=== PATIENT | female | born 1970 | race Caucasian/White ===

== ENCOUNTER → 2017-09-12 14:00 | Outpatient (CLI) | payer OTHER, SELFPAY ==
--- NOTE | 2017-09-12 14:07 | HPBI_ITS ---
MAMMOGRAPHY - BILATERAL SCREENING REASON FOR EXAM: Female, 47 years old. Routine annual screening examination. PERTINENT HISTORY: Remote left excisional breast biopsy. TECHNIQUE: Digital bilateral breast sheila (3D mammographic acquisition) in the CC and MLO projections. 2-D mediolateral oblique (MLO) and craniocaudad (CC) views of both breasts were obtained. CAD: Full Field Digital Mammography with Computer Added Detection was performed. COMPARISON: Comparison is made with prior study dated November 11, 2014 and April 30, 2013. FINDINGS: Breast Composition: The breasts are heterogeneously dense, which may obscure small masses. There are no dominant masses or suspicious calcifications. Stable bilateral benign appearing axillary lymph nodes. No other significant abnormalities are identified. There has been no significant change since the prior study. HPBI/SCREENING MAMM (CAD), BILAT IMPRESSION: Stable bilateral screening mammogram. Yearly follow-up mammogram recommended. (A) ASSESSMENT CATEGORY: BIRADS Category 2: Benign. A letter regarding these results will be sent to the patient by the facility within 30 days. Approximately 10% of breast cancers are not detected by mammography. A normal mammogram should not delay biopsy of a clinically suspicious abnormality. [id number] Electronically Signed: Vitaliy Perera MD at 15:59 EST Tel [phone], Service support ,
== END ==
PROVIDERS: Family Provider Family Medicine; PCP Family Medicine; Visit Provider Family Medicine
DX: Z12.31 Encounter for screening mammogram for malignant neoplasm of breast (principal)
CPT/HCPCS: 77063; 77067

== ENCOUNTER 2017-11-19 13:04 | Emergency (ER) | payer OTHER, SELFPAY ==
[2017-11-19 13:05] VITALS: BP 118/82; PULSE 102; RESP 16; TEMP 37.3; O2SAT 98; BMI 34.2
[2017-11-19 13:16] VITALS: TEMP 37.7
[2017-11-19 13:43] LABS: Absolute Lymphocyte Count 0.98 X10^3/ul (0.83-4.51); Absolute Neutrophil Count 9.4 X10^3/uL (2.0-7.7); Basophil# 0.01 X10^3/uL; Basophil% 0.1 % (0-1); Eosinophil# 0.07 X10^3/uL; Eosinophils% 0.6 % (0-5); Hemoglobin 13.7 g/dl (12.0-15.0); Lymphocyte # 0.98 X10^3/ul (4.0); Lymphocyte % 8.6 % (19-41); Mean Corp Hgb Conc 33.4 g/gl (32-36); Mean Corpuscular Hgb 28.5 pg (27.0-32.0); Mean Corpuscular Volume 85.2 fL (81-99); Mean Platelet Vol. 10.2 fl (6.2-12.0); Monocyte# 0.94 X10^3/uL; Monocyte% 8.2 % (0-10); Neutrophil # 9.43 X10^3/uL (2.7-7.7); Neutrophil % 82.3 % (47-70); Platelet Count 216 K/mm3 (150-450); RBC Distribution Width CV 12.8 % (11.6-14.6); RBC Distribution Width SD 39.6 fl (35.1-43.9); Red Blood Count 4.81 M/mm3 (4.2-5.4); White Blood Count 11.5 K/mm3 (4.4-11.0)
[2017-11-19 13:44] LABS: POSITIVE COUNT NO; POSITIVE DIFFERENTIAL NO; POSITIVE MORPHOLOGY NO
[2017-11-19 13:48] LABS: Erythrocyte Sedimentation Rate 22 mm/hr (0-20)
[2017-11-19 13:56] LABS: Anion Gap 8 (5-15); BUN 16 mg/dL (7-18); BUN/Creat Ratio 23.4 RATIO (10-20); Calcium,Total 8.8 mg/dL (8.5-10.1); Chloride 105 mmol/L (98-107); Creatinine, Serum 0.68 mg/dL (0.55-1.02); EST Glomerular Filtration Rate 98 mL/min (>60); Est Glom Filt Rate - Afr Amer 118 mL/min (>60); Estimated Creatinine Clearance 80.89 ml/min; Glucose 106 mg/dL (74-106); Potassium 3.8 mmol/L (3.5-5.1); Sodium Level 139 mmol/L (136-145)
[2017-11-19] MEDS: Ketorolac 30 MG/ML Syringe IV (14:00)
--- NOTE | 2017-11-19 14:10 | RAD_ITS ---
STUDY: X-RAY - LEFT KNEE REASON FOR EXAM: Female, 47 years old. Swelling and knee pain. No known injury. TECHNIQUE: AP and lateral view(s) of the knee. COMPARISON: None. FINDINGS: Normal visualized distal femur. Normal visualized proximal tibia and fibula. Normal proximal tibiofibular articulation. Normal medial femorotibial compartment. Normal lateral femorotibial compartment. Normal patellofemoral articulation. Small joint effusion. RAD/Knee 1 or 2 Views IMPRESSION: Small joint effusion. Electronically Signed: Vitaliy Perera MD at 14:26 EDT Tel [phone], Service support ,
--- NOTE | 2017-11-19 14:16 | ED.VISSUMM ---
- ER Visit Summary Date of Service: 11/19/17 Chief Complaint: To ER from urgent care because of arthralgias, red swollen right knee and fever History of Present Illness: The patient is a 47 F who reports onset of arthralgias this past Sunday. She has history of hypertension and is on hydrochlorothiazide. She denies history of gout or pseudogout. Fever documented 200.0?F. She denied chills or night sweats. She denies history of autoimmune disorder in the family or herself. She complains of severe pain left shoulder especially with movement and complains of swelling and warmth left knee. Otherwise review of systems unremarkable, please read written note. Physical Examination: Vital signs are unremarkable. She is afebrile. Head is atraumatic normocephalic. Pupils are equal round reactive. Extraocular muscles are intact. TMs are pearly white with landmarks noted. Nares patent with no drainage. Posterior pharynx without erythema or exudate. Uvula is midline. There is no dysphonia or dysphasia. Trachea is midline. There is no stridor with auscultation of the neck. Heart is regular without murmur, gallop or rub. S1 and S2 are normal. Lungs are clear to auscultation with good movement of air bilaterally. There is pain with passive range of motion of left shoulder. There is no erythema, warmth, fluctuance or effusion appreciated. There is no axillary lymphadenopathy. There is no pain palpation with movement of the elbow, wrist or digits. The left knee is swollen with an effusion. She is able to extend 280? and flex to approximately 100?. She complains of pain with movement. There is no erythema noted. There may be slight warmth in comparison to the right knee. None of her other joints are swollen, boggy and no appreciable effusion. Test Results: White count is 11.5 thousand with 83 segs. Electronic panel is unremarkable. ESR is slightly elevated at 22. View x-ray of the left knee is negative. No crystals were noted. Gram stain was negative for any organisms. Cell count is 30,000 with 90% segs. Emergency Department Course and Treatment: X-ray of the knee was obtained. Blood work was obtained as well. Differential includes crystal induced versus pyogenic versus other cause of arthralgia. This may represent a viral illness or autoimmune. Patient was consented for arthrocentesis of the left knee. She was explained what would be done and reason why it needed to be done. She was given an opportunity ask questions, and she asked none. The left knee was prepped draped sterile manner. Medial approach was undertaken. The area was anesthetized with lidocaine. Approximately 15 cc of a yellow turbid fluid was aspirated. A mixture of 9 cc 1% lidocaine and 1 cc of Kenalog was instilled. Fluid was sent for appropriate analysis (crystals, Gram stain and WBC count with differential). Treatment Plan: Dr. Weems was paged. Dr. Garza was made aware patient's history, physical findings and laboratory results. Plan is for patient to call tomorrow for urgent outpatient follow-up and referral to canal structure operator. Will treat with NSAIDs. Disposition: Discharged home with outpatient follow-up tomorrow Impression: Polyarthralgia unspecified etiology This note was generated with [employer] dictation software. It may contain incorrect words, spelling, and punctuation that were not noted in review of the chart prior to signing ED Disposition - Plan for ED Patient: Disposition: Home or Assisted Living Chief Complaint: Fever Instructions: ED Joint Pain Prescriptions: Naproxen [Naprosyn] 500 mg PO BID #14 tab Referrals: Eliz Weems MD [Primary Care Provider] - 11/20/17 Additional Instructions: Call Dr. Garcia's office tomorrow morning for an appointment to be seen and possible referral to canal structure operator.
[2017-11-19 15:16] LABS: Color, Urine Yellow (Yellow); Glucose, Dipstick Normal (Normal); Ketone-Dipstick 15 mg/dl (Negative); Leukocyte Esterase-Dipstick 25 /ul (Negative); Nitrite-Dipstick Negative (Negative); Occult Blood-Urine Negative /ul (Negative); Protein-Dipstick 30 mg/dl (Negative); Specific Gravity, Urine 1.015 (1.002-1.030); Urine Bilirubin Dipstick Negative (Negative); Urine Clarity Sl. Cloudy (Clear); Urine Urobilinogen Normal (Normal)
[2017-11-19 16:15] LABS: Pathologist Comment May follow
[2017-11-19] MEDS: Triamcinolone Acetonide 40 MG/ML Vial IU (16:26)
[2017-11-19 16:47] VITALS: BP 135/83; PULSE 94; RESP 18; O2SAT 100
[2017-11-19 17:26] LABS: RBC /Synovial Fluid 0.004 10^6/uL (0); Synovial Fld Mononuclear WBC % 9.5 %; Synovial Fld Polynuclear WBC % 90.5 %
[2017-11-19 17:50] LABS: CRYSTALS, BODY FLUID Other, see comment; Source / Synovial Fluid LEFT KNEE; Source- Body Fluid SYNOVIAL
[2017-11-19 17:51] LABS: Appearance /Synovial Fluid Hazy (CLEAR); Color / Synovial Fluid Yellow (Pale Yellow); Viscosity / Synovial Fluid Mod. Viscous (HIGH)
[2017-11-19 17:53] LABS: AUTO B FLUID DILUENT BKGD CT WBC <0.1 RBC <0.01 (W<.1,R<.01)
--- NOTE | 2017-11-19 17:59 | ED.VISSUMM ---
- ER Visit Summary Date of Service: 11/19/17 Chief Complaint: [] History of Present Illness: The patient is a 47 F [] Physical Examination: [] Test Results: [] Emergency Department Course and Treatment: [] Treatment Plan: [] Disposition: [] Impression: [] This note was generated with [employer] dictation software. It may contain incorrect words, spelling, and punctuation that were not noted in review of the chart prior to signing ED Disposition - Plan for ED Patient: Disposition: Home or Assisted Living Chief Complaint: Fever Instructions: ED Joint Pain Prescriptions: Hydrocodone Bitart/Apap 5-325 [[place] 5MG-325MG] 1 tab PO Q4H PRN PRN 2 Days #10 tab PRN Reason: Pain Naproxen [Naprosyn] 500 mg PO BID #14 tab Referrals: Eliz Weems MD [Primary Care Provider] - 11/20/17 Additional Instructions: Call Dr. Garcia's office tomorrow morning for an appointment to be seen and possible referral to performance makeup artist.
[2017-11-19 18:05] LABS: Monocyte /Synovial Fluid 6 %; Neutrophil 93 % (0-25)
[2017-11-19 18:08] LABS: Body Fluid QC Type(s) BF1Q,BF2Q
[2017-11-19 18:09] LABS: Other Cell /Synovial Fluid 1 %
[2017-11-19 18:13] VITALS: BP 134/86; PULSE 99; RESP 16; O2SAT 97
[2017-11-20 01:59] LABS: Synovial Fld Mononuclear WBC # 3.029 10^3/ul; Synovial Fld Polynuclear WBC # 28.855 10^3/ul
[2017-11-20 10:16] LABS: Pathologist Review Reviewed
== END 2017-11-19 18:15 | disposition home or self-care (01) ==
PROVIDERS: Emergency Provider Emergency Medicine; Family Provider Family Medicine; PCP Family Medicine
DX: M25.512 Pain in left shoulder (principal); M25.562 Pain in left knee; E66.9 Obesity, unspecified; I10 Essential (primary) hypertension; F32.9 Major depressive disorder, single episode, unspecified; Z79.899 Other long term (current) drug therapy
CPT/HCPCS: 20610; 73560; 80048; 81002; 85025; 85652; 87070; 87075; 87205; 89050; 89051; 89060; 96374; 99282

== ENCOUNTER → 2017-11-22 09:47 | Outpatient (CLI) | payer OTHER, SELFPAY ==
[2017-11-22 12:14] LABS: Absolute Lymphocyte Count 1.24 X10^3/ul (0.83-4.51); Eosinophil# 0.05 X10^3/uL; Eosinophils% 0.5 % (0-5); Lymphocyte # 1.24 X10^3/ul (4.0); Lymphocyte % 12.3 % (19-41); Mean Corp Hgb Conc 32.5 g/gl (32-36); Mean Corpuscular Hgb 28.6 pg (27.0-32.0); Mean Corpuscular Volume 88.1 fL (81-99); Mean Platelet Vol. 11.1 fl (6.2-12.0); Monocyte# 0.77 X10^3/uL; Monocyte% 7.7 % (0-10); Neutrophil # 7.98 X10^3/uL (2.7-7.7); Neutrophil % 79.3 % (47-70); Platelet Count 294 K/mm3 (150-450); RBC Distribution Width CV 13.4 % (11.6-14.6); RBC Distribution Width SD 42.9 fl (35.1-43.9); Red Blood Count 4.54 M/mm3 (4.2-5.4); White Blood Count 10.1 K/mm3 (4.4-11.0)
[2017-11-22 12:19] LABS: POSITIVE COUNT NO; POSITIVE DIFFERENTIAL NO; POSITIVE MORPHOLOGY NO
[2017-11-22 12:40] LABS: Erythrocyte Sedimentation Rate 54 mm/hr (0-20)
[2017-11-22 12:49] LABS: Rheumatoid Factor < 10.0 IU/mL (<15); Uric Acid 3.2 mg/dL (2.6-6.0)
[2017-11-22 15:35] LABS: Lyme Ab Screen Interpretation REF LAB
[2017-11-24 08:39] LABS: ANTINUCLEAR ANTIBODIES DIRECT Negative (Negative)
[2017-11-27 12:17] LABS: Lyme Scn Total Ab w/Rflx <0.91 ISR (0.00-0.90)
== END ==
PROVIDERS: Family Provider Family Medicine; PCP Family Medicine; Visit Provider Family Medicine
DX: M19.90 Unspecified osteoarthritis, unspecified site (principal)
CPT/HCPCS: 36415; 84550; 85025; 85652; 86038; 86140; 86431; 86618

== ENCOUNTER → 2017-11-24 11:11 | Outpatient (CLI) | payer OTHER, SELFPAY ==
[2017-11-24 11:46] LABS: Hematocrit 40.2 % (37-47); Hemoglobin 13.2 g/dl (12.0-15.0); Mean Corp Hgb Conc 32.8 g/gl (32-36); Mean Corpuscular Hgb 28.6 pg (27.0-32.0); Mean Corpuscular Volume 87.2 fL (81-99); Mean Platelet Vol. 10.1 fl (6.2-12.0); Platelet Count 294 K/mm3 (150-450); RBC Distribution Width CV 12.9 % (11.6-14.6); RBC Distribution Width SD 41.3 fl (35.1-43.9); Red Blood Count 4.61 M/mm3 (4.2-5.4); White Blood Count 9.6 K/mm3 (4.4-11.0)
[2017-11-24 11:47] LABS: Absolute Lymphocyte Count 1.64 X10^3/ul (0.83-4.51); Absolute Neutrophil Count 6.8 X10^3/uL (2.0-7.7); Basophil# 0.02 X10^3/uL; Basophil% 0.2 % (0-1); Eosinophil# 0.33 X10^3/uL; Eosinophils% 3.4 % (0-5); Lymphocyte # 1.64 X10^3/ul (4.0); Lymphocyte % 17.1 % (19-41); Monocyte# 0.79 X10^3/uL; Monocyte% 8.2 % (0-10); Neutrophil % 70.8 % (47-70)
[2017-11-24 11:48] LABS: POSITIVE COUNT NO; POSITIVE DIFFERENTIAL NO; POSITIVE MORPHOLOGY NO
[2017-11-24 11:53] LABS: Erythrocyte Sedimentation Rate 41 mm/hr (0-20)
== END ==
PROVIDERS: Family Provider Family Medicine; PCP Family Medicine; Visit Provider Family Medicine
DX: M06.4 Inflammatory polyarthropathy (principal)
CPT/HCPCS: 36415; 85025; 85652; 86140

== ENCOUNTER → 2017-11-26 15:56 | Outpatient (CLI) | payer OTHER, SELFPAY ==
[2017-11-26 17:38] LABS: Erythrocyte Sedimentation Rate 48 mm/hr (0-20)
== END ==
PROVIDERS: Family Medicine; Family Provider Family Medicine; PCP Family Medicine; Visit Provider Family Medicine
DX: M06.4 Inflammatory polyarthropathy (principal)
CPT/HCPCS: 36415; 85652; 86140

== ENCOUNTER → 2020-06-02 | Outpatient (CLI) | payer OTHER, SELFPAY ==
[2020-06-02 16:20] LABS: Anion Gap 4 (5-15); BUN 18 mg/dL (7-18); BUN/Creat Ratio 25.1 RATIO (10-20); Calcium,Total 9.2 mg/dL (8.5-10.1); Chloride 106 mmol/L (98-107); Creatinine, Serum 0.72 mg/dL (0.55-1.02); EST Glomerular Filtration Rate 91 mL/min (>60); Est Glom Filt Rate - Afr Amer 111 mL/min (>60); Glucose 101 mg/dL (74-106); Potassium 3.9 mmol/L (3.5-5.1); Sodium Level 139 mmol/L (136-145)
== END | disposition home or self-care (01) ==
LOC: MFPLAB 14:20
PROVIDERS: PCP Family Medicine; Referring Provider Family Medicine; Visit Provider Family Medicine
DX: I10 Essential (primary) hypertension (principal)
CPT/HCPCS: 36415; 80048

== ENCOUNTER → 2020-07-01 10:49 | Outpatient (CLI) | payer OTHER, SELFPAY ==
--- NOTE | 2020-07-01 10:51 | BI_ITS ---
MAMMOGRAPHY - BILATERAL SCREENING REASON FOR EXAM: Female, 50 years old. Routine annual screening examination. PERTINENT HISTORY: Non-contributory. Remote left excisional breast biopsy. TECHNIQUE: Digital bilateral breast lorena (3D mammographic acquisition) in the CC and MLO projections. 2-D mediolateral oblique (MLO) and craniocaudad (CC) views of both breasts were obtained. CAD: Full Field Digital Mammography with Computer Added Detection was performed. COMPARISON: Comparison is made with prior study dated 09/12/2017 and 11/11/2014. FINDINGS: Breast Composition: The breasts are heterogeneously dense, which may obscure small masses. There are no dominant masses or suspicious calcifications. Stable small benign appearing bilateral axillary lymph nodes. No other significant abnormalities are identified. There has been no significant change since the prior study. BI/SCREEN MAMM (CAD) W/LORENA BILAT IMPRESSION: Stable bilateral screening mammogram. Yearly follow-up mammogram recommended. (A) ASSESSMENT CATEGORY: BIRADS Category 2: Benign. A letter regarding these results will be sent to the patient by the facility within 30 days. Approximately 10% of breast cancers are not detected by mammography. A normal mammogram should not delay biopsy of a clinically suspicious abnormality. [id number] Electronically Signed: Vitaliy Perera, at 12:26 EST , Service support ,
== END ==
PROVIDERS: PCP Family Medicine; Referring Provider Family Medicine; Visit Provider Family Medicine
DX: Z12.31 Encounter for screening mammogram for malignant neoplasm of breast (principal)
CPT/HCPCS: 77063; 77067

== ENCOUNTER 2021-12-29 15:06 | Observation (INO) | payer OTHER, SELFPAY ==
[2021-12-29] VITALS (12 sets, daily range): BP systolic 136–200; BP diastolic 74–118; PULSE 78–85; RESP 16; TEMP 36.4–37; O2SAT 92–100; BMI 38.7; BMI 38.5
--- NOTE | 2021-12-29 15:32 | EDS_ITS ---
HPI HPI - GI History of Present Illness Chief Complaint: Abd Pain Informant: patient Abdominal Pain/Flank Pain Onset: Days Context: Gradual Onset Timing: Continuous Quality: Aching Location: RLQ and Right Flank Current Severity: Mild Maximum Severity: Mild Worsened by: Nothing Relieved by: Nothing Nausea/Vomiting/Emesis GI Symptom: Negative for Nausea and Vomiting Diarrhea/Melena/Hematochezia GI Symptom: Negative for Diarrhea, Melena and Hematochezia Associated Symptoms Associated Symptoms: Negative for Dysuria, Frequency, Hematuria and Urgency Narrative Narrative: 51-year-old female history of anxiety and hypertension. Prior hysterectomy with her ovaries removed in 2016 due to endometriosis. Patient states that she has had abdominal pain for 6 or 7 days. It was, right lower quadrant and right flank now back to the right lower quadrant. She denies nausea, vomiting or diarrhea. No constipation or dysuria. No fever. No history of kidney stones. Went to her primary care physician's office today. Was seen by JOSE ROBERTO and was sent for CAT scan. CAT scan shows acute appendicitis and she was sent to the ER. Prior similar symptoms: No Recent Illness/Hospitalization: No PFSH PFSH Medical History Anxiety Hearing decreased Home Medications hydrochlorothiazide 12.5 mg PO DAILY 08/26/15 [History Last Taken 12/28/21] aspirin-caffeine [Timothy Back and Body] 2 tab PO DAILY PRN 12/29/21 [History Last Taken 12/28/21] cetirizine [Zyrtec] 10 mg PO DAILY 12/29/21 [History Last Taken 12/28/21] fluoxetine 40 mg PO DAILY 12/29/21 [History Last Taken 12/28/21] Allergy/AdvReac Type Severity Reaction Status Date / Time Penicillins [PCN] Allergy Rash Verified 12/29/21 15:09 Surgical History H/O: hysterectomy Social History Smoking Status: Never smoker ROS ROS ED ROS Narrative Abdominal pain Review of Systems ROS Unobtainable: Denies due to encephalopathy Constitutional Constitutional ED: Denies fever(s) ENT ENT ED: Denies ear pain Cardiovascular Cardiovascular: Denies chest pain Respiratory/Chest Respiratory/Chest: Denies dyspnea Gastrointestinal Gastrointestinal: Reports abdominal pain; Denies constipation, diarrhea, melena, nausea or vomiting Genitourinary Genitourinary ED: Denies dysuria or hematuria Musculoskeletal Musculoskeletal: Denies arthralgias or myalgias Integumentary Denies abscess or rash Neurologic Neurologic: Denies headache(s) or weakness Psychiatric Psychiatric: Denies anxiety or depression Endocrine Endocrinology: Denies polydipsia or polyuria Hematologic/Lymphatic Hematologic/Lymphatic: Denies easy bleeding or easy bruising Allergic/Immunologic Allergic/Immunologic ED: Denies mouth swelling or urticaria EXAM Physical Exam Narrative Exam Narrative: 51-year-old female vital signs stable. Initial blood pressure elevated 200/118 rechecked 197/102. She does not look septic toxic. She is in no distress. H EENT exam unremarkable. Neck nontender lymphadenopathy. Lungs clear to auscultation bilaterally. Heart regular rate and rhythm no murmur. Abdomen soft nondistended normal bowel sounds no peritoneal signs. Tenderness right lower quadrant. No obstruction. No mass. Tender but not peritoneal signs. Moving all 4 extremities. Back nontender. Const Vital Signs: 12/29/21 15:07 12/29/21 15:15 12/29/21 15:21 Temperature 98.2 F 98.2 F Temperature Source Temporal Temporal Pulse Rate 85 85 Respiratory Rate 16 16 Blood Pressure 200/118 H 200/118 H 197/102 H Blood Pressure Mean 145 145 133 Pulse Ox 100 100 Oxygen Delivery Method Room Air Room Air 12/29/21 16:49 12/29/21 17:30 12/29/21 17:41 Temperature 98.4 F Temperature Source Oral Pulse Rate 79 Respiratory Rate 16 Blood Pressure 192/112 H 169/95 H 162/105 H Blood Pressure Mean 138 119 124 Pulse Ox 98 Oxygen Delivery Method Room Air 12/29/21 18:36 Temperature 98.4 F Temperature Source Oral Pulse Rate 79 Respiratory Rate 16 Blood Pressure 162/105 H Blood Pressure Mean 124 Pulse Ox 98 Oxygen Delivery Method Room Air Positive well nourished, well developed and obese; Negative for cachectic, con tractures or unkempt General Appearance ED: well developed and NAD; Negative for unkempt, cachectic, contractures or pallor Nutritional Appearance: obese; Negative for cachectic HEENT Reports moist mucous membranes normocephalic and atraumatic; Negative for trauma or tenderness Eyes PERRL and EOMs intact bilaterally General Eye ED: Negative for pale conjunctiva or scleral icterus Neck no lymphadenopathy, supple and no JVD General: Negative for tenderness Resp normal respiratory effort and clear to auscultation bilaterally Auscultation: Negative for rales, rhonchi or wheezes Cardio regular rate, regular rhythm, S1 normal heart sound, S2 normal heart sound and no murmurs GI non-distended and no masses; Negative for non-tender Auscultation: normoactive bowel sounds Palpation: soft; Negative for tender, guarding or rigid Back/Spine no CVA tenderness General Back: Negative for CVA tenderness Cervical Spine: Negative for cervical spine tenderness Thoracic Spine / Upper Back: Negative for thoracic spinal tenderness Extremity full ROM General Extremety ED: Negative for edema or tenderness General Extremity: Negative for edema Neuro moves all extremities Sensorium / Orientation: alert, oriented to person, oriented to place and oriented to time; Negative for orientation impaired, confused, lethargic or stuporous Motor Exam: strength 5/5 throughout Psych mental status grossly normal and thought process normal Appearance: Negative for unkempt Attitude: No agitated Mood & Affect: Negative for depressed, anxious or tearful Skin no wounds General Skin Exam: Negative for jaundice or pallor Lesions: no lesions and No lesion noted Rashes: no rashes and No rashes noted MDM MDM MDM Narrative Medical decision making narrative: 51-year-old female acute appendicitis on CAT scan. Has a penicillin allergy. Will be started on the Cipro She will. She will be given morphine and for pain and Zofran for nausea. Already paged the general surgeon on-call he is currently in the case in the OR because of the back when he is freed up. Patient is aware that she will need acute appendectomy. Patient doing well. General surgery is already seeing her. They are preparing to take her to the OR for an acute appendectomy. Lab Data Attestation: I reviewed the patient's lab results. Lab results narrative: CBC shows a white count of 6. H&H 13 and 39. Electrolytes unremarkable gap of 6. BUN and creatinine 12.6. Glucose 109. CAT scan ordered as an outpatient done prior to her coming emergency department radiologist read as acute appendicitis with appendicolith. Also incidental finding of cholelithiasis. Labs: Laboratory Results - last 24 hr 12/29/21 12/29/21 15:31 15:31 WBC 6.2 RBC 4.62 Hgb 13.4 Hct 39.8 MCV 86.1 MCH 29.0 MCHC 33.7 RDW Std Deviation 38.7 RDW Coeff of Michelle 12.3 Plt Count 219 MPV 10.7 Immature Gran % (Auto) 0.200 Neut % (Auto) 71.4 H Lymph % (Auto) 18.1 L Mcculloch % (Auto) 7.1 Eos % (Auto) 2.7 Baso % (Auto) 0.5 Absolute Neuts (auto) 4.5 Absolute Lymphs (auto) 1.13 Nucleated RBC % 0 Sodium 140 Potassium 3.6 Chloride 105 Carbon Dioxide 29.0 Anion Gap 6 BUN 12 Creatinine 0.64 Estim Creat Clear Calc 82.25 Est GFR (MDRD) Af Amer 125 Est GFR (MDRD) Non-Af 103 BUN/Creatinine Ratio 18.7 Glucose 109 H Calcium 9.1 Discharge Plan Dx/Rx/DC Orders Clinical Impression: Abdominal pain, Acute appendicitis, History of hypertension, Cholelithiasis Disposition Disposition: [facility] Care [facility]
[2021-12-29] MEDS: morphine 8 MG/ML Syringe 6 MG IV (15:39)
[2021-12-29] MEDS: Ondansetron 4 MG/2 ML Vial IV (15:39)
[2021-12-29 15:40] LABS: Absolute Lymphocyte Count 1.13 X10^3/uL (0.83-4.51); Absolute Neutrophil Count 4.5 X10^3/uL (2.0-7.7); Basophil# 0.03 X10^3/uL; Basophil% 0.5 % (0-1); Eosinophil# 0.17 X10^3/uL; Eosinophils% 2.7 % (0-5); Hematocrit 39.8 % (37-47); Hemoglobin 13.4 g/dL (12.0-15.0); Lymphocyte # 1.13 X10^3/ul (0.83-4.51); Lymphocyte % 18.1 % (19-41); Mean Corp Hgb Conc 33.7 g/dL (32-36); Mean Corpuscular Volume 86.1 fL (81-99); Mean Platelet Vol. 10.7 fl (6.2-12.0); Monocyte# 0.44 X10^3/uL; Monocyte% 7.1 % (0-10); NRBC Flagged by Analyzer 0 % (0-5); Neutrophil # 4.46 X10^3/uL (2.7-7.7); Neutrophil % 71.4 % (47-70); Platelet Count 219 K/mm3 (150-450); RBC Distribution Width CV 12.3 % (11.6-14.6); RBC Distribution Width SD 38.7 fl (35.1-43.9); Red Blood Count 4.62 M/mm3 (4.2-5.4); White Blood Count 6.2 K/mm3 (4.4-11.0)
[2021-12-29] MEDS: Ciprofloxacin 400 MG/200 ML BAG 200 MG IV (15:41)
[2021-12-29 16:10] LABS: Anion Gap 6 (5-15); BUN 12 mg/dL (7-18); BUN/Creat Ratio 18.7 RATIO (10-20); Calcium,Total 9.1 mg/dL (8.5-10.1); Chloride 105 mmol/L (98-107); Creatinine, Serum 0.64 mg/dL (0.55-1.02); EST Glomerular Filtration Rate 103 mL/min (>60); Est Glom Filt Rate - Afr Amer 125 mL/min (>60); Estimated Creatinine Clearance 82.25 ml/min; Glucose 109 mg/dL (74-106); Potassium 3.6 mmol/L (3.5-5.1); Sodium Level 140 mmol/L (136-145)
[2021-12-29] MEDS: metroNIDAZOLE 500 MG/100 ML BAG 100 MG IV (16:55)
--- NOTE | 2021-12-29 18:38 | HP.PCM_ITS ---
HPI - General HPI Narrative Brianda ROSSI, is a 51 F who presents to [facility] ER after she obtained a CT scan of the abdomen pelvis through Dr. Weems for some complaints of right lower quadrant side/abdominal pain. Patient states this pain started 6 days ago following some yard work and she was concerned that she had simply strained a muscle. The pain intensified initially over the weekend which she treated with a heating pad. However it improved to the point that she was able to return to work for the first 2 days this week. During this time she also noticed that the pain migrated from her abdominal area to her back. She notes yesterday the pain returned to her abdomen and intensified. It was at this point that she was instructed by her boss to seek further evaluation and the CT scan was ordered. Patient states that she currently has very minimal abdominal pain and was surprised to learn that there was an issue with her appendix. She denies any associated nausea or vomiting and, in fact, reports that she had a quesadilla at approximately noon time so she would become lightheaded from lack of intake. Patient's ER work-up is notable for a normal white blood cell count but with a slight predominance of neutrophils on her CBC with differential. She states that she is overall healthy, but does carry a diagnosis of hypertension. She denies any prior colon cancer screening. Her blood pressure in the ER is 197/102 and then 192/112 following the administration of pain medication. Prior surgical history includes diagnostic laparoscopy and hysterectomy. [facility] Medical History Anxiety Hearing decreased Home Medications hydrochlorothiazide 12.5 mg PO DAILY 08/26/15 [History Last Taken 12/28/21] aspirin-caffeine [Timothy Back and Body] 2 tab PO DAILY PRN 12/29/21 [History Last Taken 12/28/21] cetirizine [Zyrtec] 10 mg PO DAILY 12/29/21 [History Last Taken 12/28/21] fluoxetine 40 mg PO DAILY 12/29/21 [History Last Taken 12/28/21] Allergy/AdvReac Type Severity Reaction Status Date / Time Penicillins [PCN] Allergy Rash Verified 12/29/21 15:09 Surgical History H/O: hysterectomy Social History Smoking Status: Never smoker Vital Signs Vital Signs Vital Signs: 12/29/21 15:07 12/29/21 15:15 12/29/21 15:21 Temperature 98.2 F 98.2 F Temperature Source Temporal Temporal Pulse Rate 85 85 Respiratory Rate 16 16 Blood Pressure 200/118 H 200/118 H 197/102 H Blood Pressure Mean 145 145 133 Pulse Ox 100 100 Oxygen Delivery Method Room Air Room Air 12/29/21 16:49 12/29/21 17:30 12/29/21 17:41 Temperature 98.4 F Temperature Source Oral Pulse Rate 79 Respiratory Rate 16 Blood Pressure 192/112 H 169/95 H 162/105 H Blood Pressure Mean 138 119 124 Pulse Ox 98 Oxygen Delivery Method Room Air 12/29/21 18:36 Temperature 98.4 F Temperature Source Oral Pulse Rate 79 Respiratory Rate 16 Blood Pressure 162/105 H Blood Pressure Mean 124 Pulse Ox 98 Oxygen Delivery Method Room Air Weight Weight: 212 lb Body Mass Index (BMI) 38.7 Physical Exam Const alert, oriented x3 and no apparent distress General Appearance: cooperative Resp normal respiratory effort GI GI Narrative: Obese, well-healed Pfannenstiel incision scar, soft, tender to palpation over McBurney's point. Positive obturator and psoas signs. Results Lab / Micro Data Result Diagrams: 12/29/21 15:31 12/29/21 15:31 Labs: Laboratory Results - last 24 hr 12/29/21 15:31: WBC 6.2, RBC 4.62, Hgb 13.4, Hct 39.8, MCV 86.1, MCH 29.0, MCHC 33.7, RDW Std Deviation 38.7, RDW Coeff of Michelle 12.3, Plt Count 219, MPV 10.7, Immature Gran % (Auto) 0.200, Neut % (Auto) 71.4 H, Lymph % (Auto) 18.1 L, Hudspeth % (Auto) 7.1, Eos % (Auto) 2.7, Baso % (Auto) 0.5, Absolute Neuts (auto) 4.5, Absolute Lymphs (auto) 1.13, Nucleated RBC % 0 12/29/21 15:31: Sodium 140, Potassium 3.6, Chloride 105, Carbon Dioxide 29.0, Anion Gap 6, BUN 12, Creatinine 0.64, Estim Creat Clear Calc 82.25, Est GFR (MDRD) Af Amer 125, Est GFR (MDRD) Non-Af 103, BUN/Creatinine Ratio 18.7, Glucose 109 H, Calcium 9.1 Assessment & Plan Assessment/Plan (1) Acute appendicitis: PLAN: This is a 51-year-old female, with obesity and hypertension, who presents with signs and symptoms of acute appendicitis. Her presentation is somewhat atypical given the long lead time to her ER presentation and relatively benign exam. Still, her CT of the abdomen pelvis clearly demonstrates a dilated appendix with an appendicolith in the tip. Therefore, I recommend proceeding for laparoscopic appendectomy. Procedure was described in detail and patient accepts this recommendation. I have discussed with emergency medicine patient's blood pressure and need to treat preoperatively. Proceed for laparoscopic appendectomy once n.p.o. appropriate. Charges/Coding Visit Charges Inpatient E&M: 32249 Init Hosp L2
--- NOTE | 2021-12-29 20:44 | OP.PCM_ITS ---
Report of Operation Date of Procedure: 12/29/21 Pre-Operative Diagnosis: Acute appendicitis Post-Operative Diagnosis: Same Surgery/Procedure Performed:: Laparoscopic appendectomy Description of Surgical Findings:: ? Mildly inflamed appendix with adhesions between the appendiceal base and lateral sidewall. ? Several thin adhesions between the small bowel and anterior abdominal wall from patient's prior surgical history of hysterectomy Surgeon: Gage Al pediatric physician: Katty Ross Type of Anesthesia: General/Supplemental Anesthesiologist: Samantha Grover Specimen's removed: Appendix Drains: None Estimated Blood Loss (mL): 5 Description of Procedure: After appropriate identification in the preoperative holding area, the patient was brought to the operating room and she was placed supine on the operating room table. Antibiotics had been preoperatively administered in the emergency department. Patient was then induced with general endotracheal anesthetic. The abdomen was prepped and draped in usual sterile fashion. Formal timeout was conducted to confirm both the patient and the procedure. A supraumbilical incision was made and carried down to the level of the fascia which was sharply opened. After opening the peritoneum in like fashion a finger sweep was made to confirm position and a balloon trocar was placed as pneumoperitoneum was established to 15 mmHg. Patient was positioned in Trendelenburg with the left side down. 2 additional 5 mm trocars were placed in the left lower quadrant and suprapubic positions. The peritoneum was inspected and there were no signs of inadvertent injury from this Barrios entry. The appendix was visualized with with very mild inflammation and slight adhesions to the lateral sidewall from the appendiceal base. Using blunt laparoscopic dissection, a window was made in the mesoappendix adjacent to the appendiceal base. The mesoappendix was divided with application of a laparoscopic harmonic. Then the base of the appendix was sealed and amputated with the use of an Endo STEFANI stapler. The appendix was placed in an Endo Catch bag. The staple line was inspected for hemostasis. After hemostasis was confirmed the appendix was removed from the umbilical port site. Pneumoperitoneum was then evacuated and the supraumbilical port site fascia was closed with #1 Vicryl in a [id number] fashion. The port sites were infiltrated with [number] mL local anesthetic. The skin of each port site was closed with 4-0 Monocryl in a subcuticular fashion. Steri-Strips and OpSite dressings were applied. Patient tolerated procedure well without any apparent complications. They were awoken from general anesthetic without issue and transferred to post anesthesia care unit for ongoing recovery. Complications None Admit VTE Documentation VTE Mechan Device Prophylaxis: SCD's Procedures Digestive 40xxx-49xxx: [id number] Laparoscopy appendectomy
[2021-12-29] MEDS: BENZOCAINE/MENTHOL 1 LOZENGE MUCOUS MEM (21:25)
--- NOTE | 2021-12-29 21:35 | APP_PTH ---
PATIENT: KORINA ROSSI LOC: MS3 U#:[id number] AGE/SX: 51/F ROOM: [facility] RE12/29/[address]: Dr. Gage Al MD : 1970 BED: 1 DIS: 12/30/2021 SPEC #: [id number] RECD: 12/30/21 06:55 STATUS: MESFIN ESPINAL #: [id number] HARPAL: 12/29/21 21:[address]: Gage Al DEPT: SURGICAL PATHOLOGY RECD BY: Evelio Carrillo ENTERED: 12/30/21 09:51 SP TYPE: APPENDIX OTHR DR: Dr. Eliz Weems MD Tissues: Appendix, NOS Procedures: Surgery Specimen Level III HEADER OPERATION: Laparoscopic appendectomy PRE-OP DIAGNOSIS: Acute appendicitis TISSUE SUBMITTED: Appendix MICROSCOPIC DIAGNOSIS Appendix, appendectomy: Appendix with fibrous luminal obliteration. Negative for acute inflammation. See comment. MARILYN:bel 01/02/2022 COMMENT The entire appendix is examined. Clinical correlation and appropriate follow up are necessary. Case has been reviewed in consultation with Dr. Cerda who concurs with the above diagnosis. IDC:AM MICROSCOPIC DESCRIPTION Slides are reviewed. GROSS DESCRIPTION Received in fixative is one container labeled with the patient's name and designated appendix. The specimen consists of a vermiform appendix measuring 5.5 cm in length and 0.5 cm in average diameter. No gross perforations are evident. The appendix is serially sectioned and totally submitted in one cassette. / AM:bel 12/30/2021 TC:4 CPT: 20660
[2021-12-29] MEDS: 0.9% Normal Saline 1,000 ML 75 ML IV (22:16)
[2021-12-30] MEDS: Ibuprofen 400 MG Tablet PO ×3 (00:03→12:10)
[2021-12-30 02:04] VITALS: BP 132/80; PULSE 81; RESP 16; TEMP 36.8; O2SAT 94
[2021-12-30 05:49] VITALS: BP 152/78; PULSE 83; RESP 16; TEMP 36.8; O2SAT 93
--- NOTE | 2021-12-30 08:16 | PCM.DC ---
Discharge Instructions Diet Discharge Diet: No restrictions Activity Discharge Activity: May Not Drive (No driving while using narcotic pain medication) and May Shower (Postoperative day 1) May shower in (days): 1 Ice area for (Minutes): 20 Lifting Restrictions: No lifting greater than 15 pounds for 2 weeks after surgery Dressing / Incision Call your doctor if your incision/area has: Continuous Slow Oozing, Increased Pain/ Swelling, Increased Redness, Foul Smelling Discharge and Swelling at the incision site Call your doctor if you observe: Fever of 101 or Higher Remove Dressing in: 1 day (Please leave Steri-Strips intact until they fall off spontaneously or are taken off at your follow-up visit) Cleanse incision/area with: Soap & Water Follow Up Care Please Follow Up With: Gage Al MD When: 7-10days postop Test Results: Test results from this visit will be discussed in further detail at your follow-up appointment, if applicable. Discharge Plan Admission Admit Date/Time: 12/29/21 21:13 Attending Provider: Gage Al Primary Care Provider: Eliz Weems Instructions Patient Instructions: Appendectomy Laparoscopic Dc Discharge Orders/Prescriptions Prescriptions: New oxycodone 5 mg Tablet 5 mg PO Q6H PRN PRN (Reason: Pain Score 6-10) 3 Days Qty: 5 RF: 0 Continued hydrochlorothiazide 25 MG tablet 12.5 mg PO DAILY RF: 0 fluoxetine 40 mg capsule 40 mg PO DAILY RF: 0 cetirizine [Zyrtec] 10 mg Tablet 10 mg PO DAILY RF: 0 Timothy Back and Body 500-32.5 mg Tablet 2 tab PO DAILY PRN (Reason: Pain) RF: 0 Referrals / Follow Up: Eliz Weems MD [Primary Care Provider] - Disposition Disposition (needs filled in before D/C Order can be placed): Home, Self Care
--- NOTE | 2021-12-30 08:16 | PCM.DC.SUM ---
Providers Date of Admission: 12/29/21 Primary Care Physician: Dr. Eliz Weems MD Reason For Visit: ACUTE APPENDICITIS Diagnosis Discharge Diagnosis (1) Acute appendicitis: Status: Acute Code(s): K35.80 - Unspecified acute appendicitis Medications at Discharge Home Medications hydrochlorothiazide 12.5 mg PO DAILY 08/26/15 Timothy Back and Body 2 tab PO DAILY PRN 12/29/21 cetirizine [Zyrtec] 10 mg PO DAILY 12/29/21 fluoxetine 40 mg PO DAILY 12/29/21 oxycodone 5 mg PO Q6H PRN PRN 3 Days #5 tab 12/30/21 Hospital Course Operations appendectomy Procedures Intubation (Part of above procedure) Summary of Care Provided Hospital Course: Patient is a 51-year-old female who presented to [facility] ER on 12/29/[address] imaging of the abdomen pelvis demonstrated evidence of acute appendicitis. Laparoscopic appendectomy was therefore recommended and undertaken in an uncomplicated fashion later the same evening. However, given the late hour of the procedure, the patient was admitted for overnight observation. The morning of postoperative day 1 patient stated that she had resolution of her right lower quadrant discomfort and only mild discomfort from her surgical incisions. She stated that she was hungry and was requesting a diet. This had been previously ordered and was provided at breakfast. Patient tolerated this without issue. She went on to ambulate and have a bowel movement without an increase in her abdominal pain. With this clinical improvement, the patient was granted discharge to home. Prior to discharge, outpatient follow-up was arranged and postoperative instructions were reviewed. Physical Exam Const alert, oriented x3 and no apparent distress General Appearance: cooperative GI GI Narrative: Nondistended, operative dressings remain clean dry and intact. Minimal/appropriate tenderness about incision sites. No residual tenderness of the right lower quadrant. Weight / BMI Weight Weight: 211 lb Body Mass Index (BMI) 38.5 ABG / Lab / Microbiology Data Result Diagrams: 12/29/21 15:31 12/29/21 15:31 Laboratory: Laboratory Results - last 24 hr 12/29/21 15:31: WBC 6.2, RBC 4.62, Hgb 13.4, Hct 39.8, MCV 86.1, MCH 29.0, MCHC 33.7, RDW Std Deviation 38.7, RDW Coeff of Michelle 12.3, Plt Count 219, MPV 10.7, Immature Gran % (Auto) 0.200, Neut % (Auto) 71.4 H, Lymph % (Auto) 18.1 L, Mcdonald % (Auto) 7.1, Eos % (Auto) 2.7, Baso % (Auto) 0.5, Absolute Neuts (auto) 4.5, Absolute Lymphs (auto) 1.13, Nucleated RBC % 0 12/29/21 15:31: Sodium 140, Potassium 3.6, Chloride 105, Carbon Dioxide 29.0, Anion Gap 6, BUN 12, Creatinine 0.64, Estim Creat Clear Calc 82.25, Est GFR (MDRD) Af Amer 125, Est GFR (MDRD) Non-Af 103, BUN/Creatinine Ratio 18.7, Glucose 109 H, Calcium 9.1 Microbiology: Microbiology 12/29/21 18:10 Nasal Secretion SARS-CoV-2 Antigen (Rapid) - Final Meaningful Use Info Meaningful Use Diagnoses (Choose all that apply): None applicable Discharge Plan Admission Admit Date/Time: 12/29/21 21:13 Attending Provider: Gage Al Primary Care Provider: Eliz Weems Instructions Patient Instructions: Appendectomy Laparoscopic Dc Discharge Orders/Prescriptions Prescriptions: New oxycodone 5 mg Tablet 5 mg PO Q6H PRN PRN (Reason: Pain Score 6-10) 3 Days Qty: 5 RF: 0 Continued hydrochlorothiazide 25 MG tablet 12.5 mg PO DAILY RF: 0 fluoxetine 40 mg capsule 40 mg PO DAILY RF: 0 cetirizine [Zyrtec] 10 mg Tablet 10 mg PO DAILY RF: 0 Timothy Back and Body 500-32.5 mg Tablet 2 tab PO DAILY PRN (Reason: Pain) RF: 0 Referrals / Follow Up: Eliz Weems MD [Primary Care Provider] - Disposition Disposition (needs filled in before D/C Order can be placed): Home, Self Care
[2021-12-30 08:47] VITALS: BP 139/79; PULSE 73; RESP 18; TEMP 36.8; O2SAT 97
[2021-12-30] MEDS: hydroCHLOROthiazide 12.5mg 12.5 MG PO (08:58)
[2021-12-30] MEDS: Loratadine 10 MG Tablet PO (08:58)
[2021-12-30 12:11] VITALS: BP 144/90; PULSE 92; RESP 18; TEMP 36.8; O2SAT 94
== END 2021-12-30 16:00 | disposition home or self-care (01) ==
LOC: ED 15:37 → SDC 18:22 → ACINP 18:23 → MS3 21:35 → SDC 01-02 13:13
PROVIDERS: Admitting Provider Surgery; Emergency Provider Emergency Medicine; PCP Family Medicine; Visit Provider Surgery
PROC: 0DTJ4ZZ Resection of Appendix, Percutaneous Endoscopic Approach (ICD-10-PCS; CPT 44970; principal; 2021-12-29 21:15)
DX: K35.80 Unspecified acute appendicitis (principal); E66.01 Morbid (severe) obesity due to excess calories; Z79.82 Long term (current) use of aspirin; I10 Essential (primary) hypertension; F41.9 Anxiety disorder, unspecified; Z79.899 Other long term (current) drug therapy; Z68.38 Body mass index [BMI] 38.0-38.9, adult
CPT/HCPCS: 44970; 00840; 80048; 85025; 87811; 88304; 96361; 96365; 96367; 96375; 99218; 99283; J7030; A4216; G0378; J0744; J2405

== ENCOUNTER → 2021-12-29 | Outpatient (CLI) | payer OTHER, SELFPAY ==
--- NOTE | 2021-12-29 12:15 | CT_ITS ---
STUDY: CT ABDOMEN AND PELVIS WITH CONTRAST REASON FOR EXAM: Female, 51 years old. Right lower quadrant pain. RADIATION DOSAGE (If Supplied By Facility): CTDIvol = ( 16.60 ) mGy, DLP = ( 1160.34 ) mGycm TECHNIQUE: Transaxial images were obtained from the dome of the diaphragm to the symphysis pubis with oral contrast. Oral and amp;amp; IV Gastrografin and amp;amp; 100mL Isovue-300 was administered. Sagittal and coronal images were reconstructed. Individualized dose optimization techniques were used for this CT. COMPARISON: None. FINDINGS: The visualized lung bases are unremarkable. The visualized portions of the heart are within normal limits. Normal liver. There are multiple gallstones. Normal spleen. Normal pancreas. Normal bilateral adrenal glands. Normal right kidney. Normal left kidney. There is a small hiatal hernia. Normal small intestine. Normal colon. There is a tubular, thick-walled appendix (>7mm), consistent with acute appendicitis. Findings suggestive of possible appendicolith in the tip of the appendix. There is scattered atherosclerotic calcification of the abdominal aorta, without a demonstrated aneurysm. Normal inferior vena cava. Normal retroperitoneum. Normal urinary bladder. There is absence of the uterus consistent with a prior hysterectomy. Normal abdominal wall. Loss of the normal lumbar lordosis. The space narrowing and disc degeneration at the L5-S1 level. CT/Abdomen/Pelvis WITH Contrast IMPRESSION: Findings including within noncomplicated appendicitis. Appendicolith is seen in the tip of the appendix. Cholelithiasis. Electronically Signed: Vitaliy Perera MD at 14:49 EDT ,
[2021-12-29 14:11] LABS: CREATININE FINGERSTICK < 0.9 mg/dL (0.55-1.02); EGFR FINGERSTICK > 60.0000 mL/min (>60)
== END | disposition home or self-care (01) ==
PROVIDERS: PCP Family Medicine; Referring Provider Nurse Practitioner Family; Visit Provider Nurse Practitioner Family
DX: R10.31 Right lower quadrant pain (principal)
CPT/HCPCS: 74177; Q9967; A4216

== ENCOUNTER → 2022-06-28 | Outpatient (CLI) | payer OTHER, SELFPAY ==
--- NOTE | 2022-06-28 12:45 | RAD_ITS ---
STUDY: X-RAY - CERVICAL SPINE REASON FOR EXAM: Female, 52 years old. Neck pain. TECHNIQUE: 6 view(s) of the cervical spine were obtained. COMPARISON: None FINDINGS: Normal anterior atlantoaxial articulation. Normal odontoid process. Normal cervical lordosis. Diffuse uncovertebral and facet sclerosis. Intervertebral disc space narrowing at C3-4, C4-5, C5-6 and C6-7. Anterior bony neural foraminal encroachment at C5-6 and C6-7 bilaterally, left slightly greater than right. Ossification of the ligamentum nuchae. RAD/Cerv Spine 4 or 5 Views IMPRESSION: Diffuse cervical spondylosis most marked at C5-6 and C6-7. No acute abnormality, evidence of erosive changes or fusion. Electronically Signed: Darwin Angeles, at 15:09 EST ,
== END | disposition home or self-care (01) ==
LOC: MTRAD 12:42
PROVIDERS: PCP Family Medicine; Referring Provider Family Medicine; Visit Provider Family Medicine
DX: M54.2 Cervicalgia (principal)
CPT/HCPCS: 72050

== ENCOUNTER → 2022-09-08 | Outpatient (CLI) | payer OTHER, SELFPAY ==
--- NOTE | 2022-09-08 14:03 | BI_ITS ---
MAMMOGRAPHY - BILATERAL SCREENING REASON FOR EXAM: Female, 52 years old. Routine annual screening examination. PERTINENT HISTORY: Non-contributory. Remote left excisional breast biopsy. History of prior bilateral breast reduction surgery. TECHNIQUE: Digital bilateral breast lorena (3D mammographic acquisition) in the CC and MLO projections. 2-D mediolateral oblique (MLO) and craniocaudad (CC) views of both breasts were obtained. CAD: Full Field Digital Mammography with Computer Added Detection was performed. COMPARISON: Comparison is made with prior study 07/01/2020 and 09/12/2017. FINDINGS: Breast Composition: There are scattered areas of fibroglandular density. There are no dominant masses or suspicious calcifications. Stable small benign appearing bilateral axillary lymph nodes. No other significant abnormalities are identified. There has been no significant change since the prior study. BI/SCRN MAMM (CAD)W/LORENA BILAT IMPRESSION: Stable bilateral screening mammogram. Yearly follow-up mammogram recommended. (A) ASSESSMENT CATEGORY: BIRADS Category 2: Benign. A letter regarding these results will be sent to the patient by the facility within 30 days. Approximately 10% of breast cancers are not detected by mammography. A normal mammogram should not delay biopsy of a clinically suspicious abnormality. [id number] Electronically Signed: Vitaliy Perera MD at 15:19 EST ,
== END | disposition home or self-care (01) ==
PROVIDERS: PCP Family Medicine; Visit Provider Family Medicine
DX: Z12.31 Encounter for screening mammogram for malignant neoplasm of breast (principal)
CPT/HCPCS: 77063; 77067

== ENCOUNTER → 2022-10-06 | Outpatient (CLI) | payer OTHER, SELFPAY ==
[2022-10-06 13:40] LABS: Anion Gap 7 (5-15); BUN 15 mg/dL (7-18); BUN/Creat Ratio 22.2 RATIO (10-20); Calcium,Total 9.9 mg/dL (8.5-10.1); Chloride 104 mmol/L (98-107); Cholesterol 204 mg/dL (200); Creatinine, Serum 0.68 mg/dL (0.55-1.02); EST Glomerular Filtration Rate 97 mL/min (>60); Est Glom Filt Rate - Afr Amer 118 mL/min (>60); Glucose 92 mg/dL (74-106); High Density Lipoprotein 58 mg/dL; Potassium 4.9 mmol/L (3.5-5.1); Sodium Level 140 mmol/L (136-145); Triglycerides 205 mg/dL; Very Low Density Lipoprotein 41 mg/dL (5-40)
[2022-10-06 13:46] LABS: Microalbumin,Random Urine 17.3 mg/L (NO RANGE EST.); Microalbumin:Creatinine Ratio 10.5 mg/g CRE (<30 mg/g CRE)
== END | disposition home or self-care (01) ==
LOC: MFPLAB 11:04
PROVIDERS: PCP Family Medicine; Referring Provider Family Medicine; Visit Provider Family Medicine
DX: I10 Essential (primary) hypertension (principal)
CPT/HCPCS: 36415; 80048; 80061; 82043; 82570

== ENCOUNTER 2022-11-15 16:12 | Observation (INO) | payer OTHER, SELFPAY ==
[2022-11-03 10:44] LABS: Magnesium 2.1 mg/dL (1.6-2.6)
--- NOTE | 2022-11-14 21:37 | HP.PCM_ITS ---
History and Physical Date of Admission: 11/15/22 HISTORY OF PRESENT ILLNESS 52 year old woman presents with complaints of bilateral macromastia as well as associated painful symptomatology of neck pain, thoracic back pain, bilateral shoulder pain from shoulder grooving from the weight of her breasts on her bra straps, and inframammary intertrigo for which she uses powders and deodorant with minimal relief and without resolution of her symptomatology over the past 6 months. She denies any trauma to her breasts.? Denies any nipple discharge.? She has difficulty with activities of daily living especially chores around the house because of her painful symptomatology. She sees a Physical Therapist for over 6 months for her cervical and thoracic spine pain without relief of her painful symptomatology.? She had cervical x-rays in June,.? It showed? diffuse cervical spondylosis most marked at C5-6 and C6-7.? No acute abnormality, evidence of erosive changes or fusion.? She had a mammogram on 09/08/22. It showed breast composition has scattered areas of fibroglandular density. There are no dominant masses or suspicious calcifications.? Stable small benign appearing bilateral axillary lymph nodes. No other significant abnormalities are identified.? There has been no significant change since the prior study. She states in the last 3 years, she has lost about 40 lbs without relief in her painful breast symptomatology.? We have received medical approval from her insurance carrier for her breast reduction surgery.? It is scheduled for November 15, 2022.? She presents to day to further discuss her surgery and answer any last minute questions and concerns a nd to sign her office consent. PAST MEDICAL HISTORY Anxiety Back problem Cataracts, bilateral Chronic left shoulder pain Chronic neck pain Chronic right shoulder pain Chronic thoracic back pain Depression Heartburn Hypertension Intertrigo Loss of hearing Macromastia Migraine headache Non-smoker Pneumonia Restless legs Wears glasses Wears hearing aid PAST SURGICAL HISTORY Endometriosis H/O: hysterectomy History of appendectomy ALLERGIES Penicillins [PCN] MEDICATIONS hydrochlorothiazide cetirizine (Zyrtec) fluoxetine multivitamin (Daily Multi-Vitamin tablet) FAMILY HISTORY Father?- Alcoholism, Arthritis, Hypertension, Brain tumor, Brain cancer Mother - Depression, Osteoarthritis, Thyroid disorder Grandfather - Alcoholism Grandmother - Arthritis Grandmother - Hypertension, CVA (cerebral vascular accident) Grandfather - Lung cancer SOCIAL HISTORY Smoking Status:? Never smoker alcohol intake:? current details:? occasional beer or liquor substance use type:? does not use REVIEW OF SYSTEMS General - Denies fever.? Has fatigue and? 40 lb weight loss over last 3 years.? Eyes - Has cataracts.? Denies glaucoma. ENT - Denies nasal congestion and sore throat.? Patient is hard of hearing.? She can read lips. Endocrine - Denies excessive thirst and urination. Skin - Denies suspicious lesions and skin cancer.? Has inframammary intertrigo.? Has family history of skin cancer. Musculoskeletal - Has joint pain, joint stiffness, weakness of muscles and joints, and neck pain and back pain.? ? Her neck and back pain involve cervical and thoracic area.? Denies arthritis.? Has bilateral shoulder pain from shoulder grooving from the weight of her breasts on her bra straps. Neuro - Denies headaches. Cardiovascular - Denies chest pain.?? Has fatigue shortne.? Denies shortness of breath with exertion. Psych - Denies anxiety and depression. Respiratory - Denies shortness of breath.? Denies chronic cough.? Gastrointestinal - Denies nausea, vomiting, diarrhea, and constipation. Hematologic - Denies abnormal bruising and bleeding. Genitourinary - Denies hematuria and urinary frequency. PHYSICAL EXAMINATION General - Alert and oriented. Patient's bra size is 38G.? Her height is 62 in ches.? Her weight is 211 lbs.? Her BMI is 38.5%.? Her BSA is 1.96m2. HEENT - PERRL. EOMI. Throat is clear. Neck - Supple.? No bony tenderness.? There is some pericervical soft tissue tenderness. Lungs- Clear to auscultation. Heart - Regular rate and rhythm. Breasts - Patient has bilateral macromastia.? No breast masses palpable. No axillary adenopathy noted.? Distance from midclavicular line on the left to the nipple is 35 cm and from the nipple to the inframammary fold is 23 cm. Distance from midclavicular line on the right to the nipple is 36 cm and from nipple to the inframammary fold is 23 cm. Nipple areolar complex diameter is 7.5 cm bilaterally.? No active inframammary intertrigo noted at this time. Abdomen - Soft and non distended. Back - No bony tenderness noted.? There is perivertebral soft tissue tenderness in the upper thoracic area. Extremities - FROM.? No axillary adenopathy.? Radial pulses are palpable. There is some bilateral shoulder tenderness with shoulder grooving from the weight of her breasts on her bra straps. Neuro - CN II-XII grossly intact. Psych - Normal and mood and affect. ASSESSMENT 1.? Bilateral macromastia. 2.? Neck pain. 3.? Thoracic back pain. 4.? Bilateral shoulder pain from shoulder grooving from the weight of the breasts on her bra straps. 5.? Inframammary intertrigo. PLAN Discussed with the patient the procedure of breast reduction mammoplasty.? I feel this procedure would be beneficial in this patient as it would help relieve her painful symptomatology. We have received medical approval from her insurance carrier for her breast reduction surgery. It is scheduled for 11/15/22. Patient had a mammogram on 09/08/22. It showed breast composition:has scattered areas of fibroglandular density. There are no dominant masses or suspicious calcifications.? Stable small benign appearing bilateral axillary lymph nodes. No other significant abnormalities are identified.? There has been no significant change since the prior study. Postoperatively, she would get a breast reduction baseline mammogram at some point. Based on the Schnur Sliding Scale, I would remove approximately 586 grams of breast tissue per side.? We will send the tissue to pathology for analysis to rule out carcinoma. This sliding scale helps to determine the minimum required amount of tissue that needs to be removed from each breast in order for it to be considered a medical need.? Her BSA is 1.96m2 which corresponded to the 586 grams of breast tissue needed to be removed from each breast. Discussed with patient the extent of scarring for this procedure.? The biggest risk for wound healing problems is the T-zone area.? Usually wound care and sometimes antibiotics are necessary for healing in this area. ? She would have drains in for a few days depending on the amount of tissue that is removed.? She will be on antibiotics until the drains are removed. In general, the final breast size would range from a high B to a low C cup.? Patient voices understanding and would like to be in the low C cup range. Surgery will be done under general anesthesia with a surgical observation overn ight stay in the hospital. Patient was informed of the risks and complications of the procedure including alternatives to surgery.? These were discussed with her personally.? She voices understanding and wishes to proceed. Some of the risks and complications were included in a form from the [employer]. Potential risks and complications included but not inclusive of bleeding, infection, seroma, hematoma, bruising, swelling, prolonged need for drains, loss of sensation to skin, partial or complete loss of skin flap and/or nipple,wound? breakdown, need for wound care, poor scarring, poor aesthetic outcome, intra operative cardiac or neurologic events, DVT, PE, and reaction to anesthesia.
[2022-11-15] VITALS (14 sets, daily range): BP systolic 93–172; BP diastolic 54–100; PULSE 86–128; RESP 14–21; TEMP 36.6–37.8; O2SAT 92–99; BMI 38.2
[2022-11-15] MEDS: Magnesium 1 GM over 15 mins IV (06:23)
[2022-11-15] MEDS: Gabapentin 600 MG Tablet PO (06:23)
[2022-11-15] MEDS: Acetaminophen 500 MG Tablet 1000 MG PO ×3 (06:23→23:31)
[2022-11-15] MEDS: Lactated Ringers 1,000 ML 40 ML IV (06:23)
[2022-11-15] MEDS: Scopolamine 1mg/72hr Patch 1 PATCH TD (06:24)
--- NOTE | 2022-11-15 07:30 | BR_PTH ---
PATIENT: KORINA ROSSI LOC: MS3 U#:[id number] AGE/SX: 52/F ROOM: [facility] RE11/15/[address]: Dr. Nicholas Trejo MD : 1970 BED: 1 DIS: 11/16/2022 SPEC #: [id number] RECD: 11/15/22 16:41 STATUS: MESFIN ESPINAL #: [id number] HARPAL: 11/15/22 07:[address]: Nicholas Trejo DEPT: SURGICAL PATHOLOGY RECD BY: Tiffani Cardenas ENTERED: 11/16/22 07:55 SP TYPE: MAMOPLASTY OTHR DR: Dr. Eliz Weems MD Tissues: A - Right breast, NOS B - Left breast, NOS Procedures: Surgery Specimen Level IV HEADER OPERATION: ERAS, breast reduction, mammoplasty PRE-OP DIAGNOSIS: Macromastia TISSUE SUBMITTED: A ? Right breast tissue, B ? Left breast tissue MICROSCOPIC DIAGNOSIS A. Right breast, reduction mammoplasty: Nonproliferative fibrocystic change. Skin with no pathologic change. B. Left breast, reduction mammoplasty: Nonproliferative fibrocystic change. Skin with no pathologic change. AM:bel 11/17/2022 MICROSCOPIC DESCRIPTION Slides are reviewed. GROSS DESCRIPTION A - Received in fixative is one container labeled with the patient's name and designated right breast. The specimen consists of multiple irregular fragments of caicedo-yellow fibrofatty tissue (>30) ranging in size from 1.0 to 16.0 cm and in aggregate weighing 1516 gm. The larger fragments contain unremarkable skin. No cutaneous lesions are identified. Serial sections reveal mostly yellow cut surfaces with focal white fibrous streaks. No mass lesion is identified. [employer] sections are submitted in five cassettes as follows: 1 - soft tissue, 2-5 - [employer] Administrator sections of breast parenchyma. B - Received in fixative is one container labeled with the patient's name and designated left breast. The specimen consists of multiple irregular fragments of caicedo-yellow fibrofatty tissue (>30) ranging in size from 0.5 to 16.0 cm and in aggregate weighing 1580 gm. The larger fragments contain unremarkable skin. No cutaneous lesions are identified. Serial sections reveal mostly yellow cut surfaces with focal white fibrous streaks. No mass lesion is identified. [employer] Administrator sections are submitted in five cassettes as follows: 1 - soft tissue, 2-5 - [employer] Administrator sections of breast parenchyma. / AM:bel 11/16/2022 TC:5 CPT: 36808 x2
[2022-11-15 07:31] LABS: Bedside Glucose 94 mg/dL (74-106)
[2022-11-15] MEDS: Clindamycin 900 MG/50 ML BAG 75 MG IV (07:40)
[2022-11-15] MEDS: Lidocaine 1% /Epi 1:100 (50ml) 50 ML VIAL (08:39)
[2022-11-15] MEDS: Lactated Ringers 1,000 ML 60 ML IV ×2 (14:30→20:13)
--- NOTE | 2022-11-15 15:34 | PCM.OPRPT ---
Problems Associated Problem List Diagnoses (1) Macromastia: (2) Chronic neck pain: (3) Chronic thoracic back pain: (4) Chronic left shoulder pain: (5) Chronic right shoulder pain: (6) Intertrigo: Report of Operation Date of Procedure: 11/15/22 Pre-Operative Diagnosis: 1. Bilateral macromastia. 2. Neck pain. 3. Thoracic back pain. 4. Bilateral shoulder pain from shoulder grooving from the weight of the breasts on her bra straps. 5. Inframammary intertrigo. Post-Operative Diagnosis: Same. Surgery/Procedure Performed:: Bilateral breast reduction mammaplasty. Description of Surgical Findings:: 52 year old woman presents with complaints of bilateral macromastia as well as associated painful symptomatology of neck pain, thoracic back pain, bilateral shoulder pain from shoulder grooving from the weight of her breasts on her bra straps, and inframammary intertrigo for which she uses powders and deodorant with minimal relief and without resolution of her symptomatology over the past 6 months. She denies any trauma to her breasts.? Denies any nipple discharge.? She has difficulty with activities of daily living especially chores around the house because of her painful symptomatology. She sees a Physical Therapist for over 6 months for her cervical and thoracic spine pain without relief of her painful symptomatology.? She had cervical x-rays in June,.? It showed? diffuse cervical spondylosis most marked at C5-6 and C6-7.? No acute abnormality, evidence of erosive changes or fusion.? She had a mammogram on 09/08/22.? It showed breast composition has scattered areas of fibroglandular density.? There are no dominant masses or suspicious calcifications.? Stable small benign appearing bilateral axillary lymph nodes.? No other significant abnormalities are identified.? There has been no significant change since the prior study.???She states in the last 3 years, she has lost about 40 lbs without relief in her painful breast symptomatology.? We have received medical approval from her insurance carrier for her breast reduction surgery.? Patient was informed of the risks and complications of the procedure including alternatives to surgery. These were discussed with the patient personally. Patient voices understanding and wishes to proceed. Some of the risks and complications were included in a form from the [employer]. Potential risks and complications included but not inclusive of bleeding, infection, seroma, hematoma, bruising, swelling, prolonged need for drains, loss of sensation to skin, partial or complete loss of skin flap and/or nipple, wound breakdown, need for wound care, poor scarring, poor aesthetic outcome, intra operative cardiac or neurologic events, DVT, PE, and reaction to anesthesia. IV Fluids - 3300 ml. Urine Output - 800 ml. Tissue removed from the left breast - 1448 grams. Tissue removed from the right breast - 1454 grams. I used AxioFill Placental Connective Tissue Powder, (I used 1000mg x2, one in each breast). Catalog Number - [id number]-1000. Lot Number - [id number]. Expiration - May 13, 2027, (Left Breast). Catalog Number - [id number]-1000. Lot Number - [id number]. Expiration - June 13, 2027, (Right Breast). I used Lynette absorbable hemostat, (I used 6 vials, 3 in each breast). Reference Number - [id number]. Lot Number - [id number]. Expiration - July 10, 2027. Surgeon: Nicholas Trejo MD paintings conservator: Sara Spann RNFA paintings conservator: Samra Castrejon RNFA Type of Anesthesia: General Anesthesiologist: Rohan Heaton MD and Britni Shin CRNA and Freddy Turner CRNA Specimen's removed: 1. Left breast tissue to Pathology. 2. Right breast tissue to Pathology. Drains: Jeison x2 (one in each breast). Estimated Blood Loss (mL): 250. Fluids Replaced: 4100 ml (IV Fluids - 3300 ml, Urine Output - 800 ml). Description of Procedure: In the preop area, the patient was placed in the sitting position and preoperative markings were made.? The sternum midline was marked down to the umbilicus.? The inframammary folds were marked bilaterally.? The midclavicular line was then marked down to the nipple, then from the nipple to the inframammary fold.? The inframammary fold was then superimposed on the midclavicular line and I made a point 1 cm below that to be the new position of the nipple-areolar complex.? 7 cm lines were then drawn divergent from that point to encompass the nipple-areolar complex.? The distance between the divergent lines was 10 cm.? The patient was then placed in the supine position and taken to the operating room and placed under general anesthesia and her breasts were prepped and draped in usual fashion.? Ioban draping was also used.? SCDs were placed for DVT prophylaxis.? Perioperative antibiotics were given intravenously.? A Ivy catheter was also placed. ? I then kirt straight lines down from the lines drawn divergent around the nipple-areolar complex down to the inframammary fold.? The width of the pedicle is 10 cm.? I then used a 45 mm circular template for a new size of the nipple-areolar complex.? The central markings were infiltrated with Xylocaine and epinephrine.? The central skin was then deepithelialized.? I started on the left side first and then went to the right side.? I then mobilized medial and lateral breast flaps at the level of Jose's fascia down to about 1-2 cm from the chest wall.? This was met in the midline of the breast with dissection at the level of Jose's fascia down to about 1-2 cm from the chest wall.? Once the central breast mound pedicle was from the skin envelope, the reduction was then begun.? Most of the tissue was removed from the superior aspect of the breast and the lateral aspect of the breast.? I then sutured the leading edge of the medial and lateral breast flaps to the midline of the inframammary fold with 2-0 Vicryl suture.? The vertical incision was approximated using surgical clips.? The excess tissue from the medial and lateral breast flaps were excised and the horizontal incision was approximated using surgical clips.? The patient was then placed in a sitting position.? Using a vertical limb length of 5.5 cm, I krit the new position of the new nipple-areolar complexes on both breasts.? They were in good position on the central aspect of the breast mound.? Good symmetry was noted between the left breast and the right breast.? Good shape and contour and projection were noted and appeared clinically to be a full C cup.? The patient was then placed back in the supine position and the surgical clips were removed.? The breast wounds were then irrigated with Irrisept 0.05% Chlorhexidine solution which was followed by saline irrigation.? Hemostasis was obtained using electrocautery.? The tissue removed from the left breast was 1448 grams.? The tissue removed from the right breast was 1454 grams.? The tissue that was removed from the breasts was sent to Pathology for analysis to rule out carcinoma. ? After hemostasis was obtained using electrocautery, I then sprayed Lynette absorbable hemostat into both breast wounds.? I used 3 vials for each side.? I then placed a size 15 Jeison drain into each breast wound to be brought through the lateral aspect of the horizontal incision.? I then closed the breast wounds by first approximating the leading edge of the medial and lateral breast flaps to the midline of the inframammary fold with 2-0 Vicryl suture.? I then placed AxioFill placental connective tissue powder into both wounds at the level of the Tzone to help with the healing process. I used 1000 mg in each breast. ? The deep dermis and subcutaneous tissue of the vertical incision and the horizontal incisions were approximated using 3-0 Monocryl interrupted sutures.? ? The horizontal incision was then approximated using 4-0 V-Loc unidirectional barbed running subcuticular suture.? I also placed a few 4-0 Prolene vertical mattress interrupted sutures at the level of the Tzone.? The vertical incision was then closed on the skin with 4-0 Prolene interrupted sutures.? With a vertical limb length of 5.5 cm, I kirt a circular incision where the nipple-areolar complex would be brought through this keyhole incision.? Incisions were made and the nipple areolar complex was brought through the keyhole incision.? The nipple-areolar complex was secured to the breast skin using 3-0 Monocryl interrupted sutures for deep dermis and subcutaneous tissue.? The skin was approximated using 4-0 Prolene simple interrupted sutures.? This was then covered with Histoacryl skin tissue adhesive.? I sutured the drains to the skin using 3-0 nylon suture.? At the end of the procedure, the breasts were soft with no evidence of vascular compromise.? No evidence of hematomas were noted.? The nipples were viable.? I then dressed the breasts with a Kerlix gauze and a compression surgical bra.? Then patient tolerated the procedure well and will be sent to the recovery room in satisfactory condition.? She will be admitted for surgical observation overnight stay.? She will go home tomorrow once she is tolerating oral pain medication.? I will remove the drains in a few days.? She will keep her head elevated during the initial postoperative period.? She will be maintained on a lifting restriction and keep her head elevated during the initial postoperative period.? The operative blood loss was about 250 ml.? Post-discharge, she may get a compression sports bra as well.? She will have the Ivy removed in the morning.? She will be sent home on antibiotics and pain medicine. ? Sutures will be removed in 1-2 weeks. Grafts/Implants Used: AxioFill Placental Connective Tissue Powder 1000mg x2, Lynette x 6. Procedure Start Time: 08:27 Procedure Stop Time: 15:18 Complications None. Admit VTE Documentation VTE Present on Admission: No VTE Mechan Device Prophylaxis: SCD's VTE Pharm Prophylaxis ordered?: Yes Addendum Addendum: Surgery Charges CPT - 84992-60 ICD-10 - N62, M54.2, M54.6, M25.511, M25.512, L30.4 11686 N62, M54.2, M54.6, M25.511, M25.512, L30.4
[2022-11-15] MEDS: Ensure Surgery 237 ML LIQUID PO (18:51)
[2022-11-15] MEDS: Gabapentin 100 MG Capsule 200 MG PO (18:52)
[2022-11-15] MEDS: oxyCODONE 5 MG Tablet PO (21:16)
[2022-11-15] MEDS: Docusate Sodium 100 MG Capsule PO (21:16)
[2022-11-15] MEDS: Clindamycin 600 MG/50 ML BAG 100 MG IV (21:17)
[2022-11-16 03:50] VITALS: BP 134/84; PULSE 86; RESP 16; TEMP 36.5; O2SAT 97
[2022-11-16] MEDS: oxyCODONE 5 MG Tablet PO (04:05)
[2022-11-16] MEDS: Clindamycin 600 MG/50 ML BAG 100 MG IV ×2 (06:20→13:46)
[2022-11-16] MEDS: Acetaminophen 500 MG Tablet 1000 MG PO ×2 (06:20→11:51)
[2022-11-16 07:05] VITALS: O2SAT 97
[2022-11-16 07:31] LABS: Hematocrit 29.1 % (37-47); Hemoglobin 9.2 g/dL (12.0-15.0); Mean Corp Hgb Conc 31.6 g/dL (32-36); Mean Corpuscular Hgb 29.2 pg (27.0-32.0); Mean Corpuscular Volume 92.4 fL (81-99); Mean Platelet Vol. 11.5 fl (6.2-12.0); Platelet Count 198 K/mm3 (150-450); RBC Distribution Width CV 13.4 % (11.6-14.6); RBC Distribution Width SD 44.9 fl (35.1-43.9); Red Blood Count 3.15 M/mm3 (4.2-5.4); White Blood Count 10.7 K/mm3 (4.4-11.0)
[2022-11-16 08:00] VITALS: BP 127/74; PULSE 95; RESP 16; TEMP 37.3; O2SAT 96
[2022-11-16 08:03] VITALS: O2SAT 96
[2022-11-16 08:05] LABS: Anion Gap 6 (5-15); BUN 19 mg/dL (7-18); BUN/Creat Ratio 21.1 RATIO (10-20); Calcium,Total 7.8 mg/dL (8.5-10.1); Chloride 101 mmol/L (98-107); EST Glomerular Filtration Rate 70 mL/min (>60); Est Glom Filt Rate - Afr Amer 84 mL/min (>60); Estimated Creatinine Clearance 60.49 ml/min; Glucose 140 mg/dL (74-106); Prealbumin 18.1 mg/dL (20.0-40.0); Sodium Level 134 mmol/L (136-145)
[2022-11-16] MEDS: Multivitamins,Therapeutic Tablet 1 TABLET PO (09:02)
[2022-11-16] MEDS: Gabapentin 100 MG Capsule 200 MG PO ×2 (09:03→13:22)
[2022-11-16] MEDS: Loratadine 10 MG Tablet PO (09:03)
[2022-11-16] MEDS: Enoxaparin 40 MG/0.4 ML Syringe SC (09:04)
[2022-11-16] MEDS: hydroCHLOROthiazide 12.5mg 12.5 MG PO (09:04)
[2022-11-16] MEDS: Docusate Sodium 100 MG Capsule PO (09:04)
[2022-11-16] MEDS: Fluoxetine HCl 40 MG CAPSULE PO (09:06)
[2022-11-16 12:11] VITALS: BP 127/74; PULSE 99; RESP 16; TEMP 36.7; O2SAT 97
--- NOTE | 2022-11-16 13:41 | PCM.PN.SRG ---
Subjective Subjective Postop #1 Patient is resting comfortably. Has some incisional pain. Tolerating po analgesia. She is steady on her feet with ambulation. Objective Data Objective Data Vital Signs: Vital Signs Temp Pulse Resp BP Pulse Ox O2 Del Method O2 Flow Rate 98.1 F 99 16 127/74 H 97 Room Air 4 11/16/22 12:11 11/16/22 12:11 11/16/22 12:11 11/16/22 12:11 11/16/22 12:11 11/16/22 12:11 11/15/22 17:15 Oxygen Flow Rate (L/min) 4 Oxygen Delivery Method Room Air Weight: 216 lb 0.848 oz Body Mass Index (BMI) 38.2 Intake & Output: Intake and Output for Last 24 Hours 11/14/22 11/15/22 11/16/22 23:59 23:59 23:59 Intake Total 3609 / 3609 1863 / 1863 Output Total 1124 / 1124 2004 Balance 2485 / 2485 -142 / -142 Drainage - 74 ml yesterday. Prealbumin was 18.1. Encourage nutritional supplementation with protein to help the healing process. Lab / Micro Data Attestation: I reviewed the patient's lab results. Lab results narrative: Hgb is 9.2. She has no clinical evidence of hematoma. She as anemia due to expected blood loss. Her operative blood loss was 250 ml. She also had IV dilution with her I's/O's a positive 2500 ml. Will recheck the Hgb in the office after discharge. Will need Iron supplementation. Result Diagrams: 11/16/22 05:47 11/16/22 05:47 Labs: Laboratory Results - last 24 hr 11/16/22 05:47: WBC 10.7, RBC 3.15 L, Hgb 9.2 L, Hct 29.1 L, MCV 92.4, MCH 29.2, MCHC 31.6 L, RDW Std Deviation 44.9 H, RDW Coeff of Michelle 13.4, Plt Count 198, MPV 11.5 11/16/22 05:47: Sodium 134 L, Potassium 4.0, Chloride 101, Carbon Dioxide 27.0, Anion Gap 6, BUN 19 H, Creatinine 0.90, Estim Creat Clear Calc 60.49, Est GFR (MDRD) Af Amer 84, Est GFR (MDRD) Non-Af 70, BUN/Creatinine Ratio 21.1 H, Glucose 140 H, Calcium 7.8 L, Prealbumin 18.1 L Physical Exam Narrative General - Alert and Oriented HEENT - PERRL. EOMI. Neck - Supple and nontender. Breasts - Soft and symmetrical. Incisions are dry and intact. Nipples are viable. No clinical evidence of hematoma. Good breast contour noted. Abdomen - Soft and nondistended. Neuro - CN II-XII grossly intact. Psych - Normal mood and affect. Assessment & Plan Assessment/Plan (1) Macromastia: (2) Chronic neck pain: (3) Chronic thoracic back pain: (4) Chronic left shoulder pain: (5) Chronic right shoulder pain: (6) Intertrigo: (7) Acute postoperative anemia due to expected blood loss: PLAN: Plan Breasts are soft and symmetrical. Incisions are dry and intact. Nipples are viable. No clinical evidence of hematoma. Good breast contour noted. She is tolerating po analgesia. She is steady on her feet with ambulation. Hgb is 9.2. She has no clinical evidence of hematoma. She as anemia due to expected blood loss. Her operative blood loss was 250 ml. She also had IV dilution with her I's/O's a positive 2500 ml. Will recheck the Hgb in the office after discharge. Will need iron supplementation . Prealbumin is 18.1. Encourage nutritional supplementation with protein to help the healing process. Discharge home today. Keep head elevated. Continue breast compression with an olivia wrap or her surgical bra. Continue 20 lb lifting restriction. Followup office on Sunday to remove the drains. Wrote scripts for Clindamycin, Acidophilus Probiotic, Percocet for pain (28 tabs), and Colace. Will also write for Iron supplementation.
--- NOTE | 2022-11-16 13:47 | DCINST_ITS ---
Discharge Instructions Diet Discharge Diet: No restrictions (Encouraged increase protein intake to help with wound healing) Activity Discharge Activity: May Not Shower May resume sexual activity in: 10-14 days Lifting Restrictions: 20 lb weight lifting restriction Additional Activity Instructions:: Keep head elevated Dressing / Incision Call your doctor if your incision/area has: Continuous Slow Oozing, Sudden Increased Bleeding, Increased Pain/ Swelling, Increased Redness and Foul Smelling Discharge Call your doctor if you observe: Fever of 101 or Higher, Inability to urinate, Inability to have a bowel movement, Shortness of breath, Calf discomfort and Uncontrolled pain Cleanse incision/area with: Do not get Incision Wet Drain: Suction Additional Dressing/Incision Instructions:: Leave dressing in place, unless it becomes saturated, then may change. Measure drainage amounts and record and bring recordings into office visit Follow Up Care Please Follow Up With: Nicholas Trejo MD When: Sunday11/21/22 at 11:00. Office number [phone] Test Results: Test results from this visit will be discussed in further detail at your follow-up appointment, if applicable. Discharge Plan Admission Admit Date/Time: 11/15/22 16:12 Attending Provider: Nicholas Trejo Primary Care Provider: Eliz Weems Discharge Orders/Prescriptions Prescriptions: New clindamycin HCl 300 mg capsule 300 mg PO TID 5 Days Qty: 15 0RF oxycodone-acetaminophen [Percocet] 5-325 mg tablet 1 tab PO 4X/DAY PRN PRN (Reason: pain (scale score 7-10)) 7 Days Qty: 28 0RF L.acidoph,saliva-B.bif-S.therm [Acidophilus Probiotic Blend] 175 mg capsule 1 cap PO DAILY 15 Days Qty: 15 0RF docusate sodium [Colace] 100 mg capsule 100 mg PO DAILY 30 Days Qty: 30 0RF Continued multivitamin [Daily Multi-Vitamin] Tablet 1 tab PO DAILY hydrochlorothiazide 25 MG tablet 12.5 mg PO DAILY Label Comments: blood pressure fluoxetine 40 mg capsule 40 mg PO DAILY Label Comments: TAKE 1 CAPSULE BY MOUTH ONCE DAILY cetirizine [Zyrtec] 10 mg Tablet 10 mg PO DAILY Other Ambulatory Orders: 12 Lead EKG (Routine) Timeframe: 20221103 Location: None Selected Ordered By: Dr. Dylan Keyes Referrals / Follow Up: Eliz Weems MD [Primary Care Provider] - Tamara Dukes [employer]IC[employer]URE INSTRUCTOR, COMMERCIAL H[employer]ICULTURE INSTRUCTOR-C [Med Staff - [facility] Practice Prof] - Disposition Disposition (needs filled in before D/C Order can be placed): Home, Self Care
--- NOTE | 2022-11-16 14:49 | CASEMGMT ---
BREE CM into pt room, pt sitting up in chair with mother at bedside. Pt is anxious to dc. Pt states she feels comfortable with her drains and her mother is going to be assisting her. Pt denies any homegoing needs.
== END 2022-11-16 16:18 | disposition home or self-care (01) ==
LOC: SDC 16:51 → MS3 16:51
PROVIDERS: Anesthesiology; Admitting Provider Surgery; PCP Family Medicine; Referring Provider Surgery; Visit Provider Surgery
PROC: 0H0U0ZZ Alteration of Left Breast, Open Approach (ICD-10-PCS; CPT 19318; principal; 2022-11-15 07:15)
DX: N62 Hypertrophy of breast (principal); M25.512 Pain in left shoulder; M25.511 Pain in right shoulder; I10 Essential (primary) hypertension; M54.6 Pain in thoracic spine; G89.29 Other chronic pain; M54.2 Cervicalgia; Z79.899 Other long term (current) drug therapy
CPT/HCPCS: 19318; 00402; 36415; 80048; 82962; 83735; 84134; 85027; 88305; 93005; 94668; 96365; 96366; 96372; 99221; 99252; J7120; G0378; G0463; J2405; J3475; Q9968

== ENCOUNTER → 2022-12-05 | Outpatient (CLI) | payer OTHER, SELFPAY ==
[2022-12-05 11:51] LABS: Hematocrit 30.7 % (37-47); Hemoglobin 9.2 g/dL (12.0-15.0); Mean Corpuscular Hgb 27.4 pg (27.0-32.0); Mean Corpuscular Volume 91.4 fL (81-99); Mean Platelet Vol. 9.9 fl (6.2-12.0); Platelet Count 458 K/mm3 (150-450); RBC Distribution Width CV 13.2 % (11.6-14.6); RBC Distribution Width SD 43.5 fl (35.1-43.9); Red Blood Count 3.36 M/mm3 (4.2-5.4); White Blood Count 5.9 K/mm3 (4.4-11.0)
== END | disposition home or self-care (01) ==
LOC: PAVLAB 11:31
PROVIDERS: PCP Family Medicine; Referring Provider Surgery; Visit Provider Surgery
DX: D62 Acute posthemorrhagic anemia (principal); Z98.890 Other specified postprocedural states
CPT/HCPCS: 36415; 85027

== ENCOUNTER → 2022-12-12 | Outpatient (CLI) | payer OTHER, SELFPAY | END | disposition home or self-care (01) | LOC: LABSPEC 12:08 | PROVIDERS: Referring Provider Nurse Practitioner Family; Visit Provider Nurse Practitioner Family | DX: T81.89XA Other complications of procedures, not elsewhere classified, initial encounter (principal); Z98.890 Other specified postprocedural states; X58.XXXA Exposure to other specified factors, initial encounter | CPT/HCPCS: 87070; 87075; 87205 ==

== ENCOUNTER → 2023-04-11 | Outpatient (CLI) | payer OTHER, SELFPAY ==
--- NOTE | 2023-04-11 10:40 | US_ITS ---
STUDY: ULTRASOUND BREAST - RIGHT REASON FOR EXAM: Female, 52 years old. Palpable lump in the medial aspect of the right breast. TECHNIQUE: Axial and longitudinal images of the RIGHT breast were performed with a high resolution ultrasound transducer. # OF IMAGES: 49 COMPARISON: Comparison is made with prior mammogram done earlier in the day. FINDINGS: RIGHT Breast: There is a 6 mm x 6 mm x 5 mm cyst at the 3:00 position of the breast at 3 cm from the nipple. Dense residual breast tissue is seen. IMPRESSION: 6 mm x 6 mm x 5 mm cyst is seen at the 3:00 position of the breast at 3 cm from nipple. ASSESSMENT CATEGORY: BIRADS Category 2: Benign. A letter regarding these results will be sent to the patient by the facility within 30 days. Electronically Signed: Vitaliy Perera MD at 12:43 EDT , STUDY: ULTRASOUND BREAST - LEFT REASON FOR EXAM: Female, 52 years old. Bilateral breast lumps following breast reduction surgery. TECHNIQUE: Axial and longitudinal images of the LEFT breast were performed with a high resolution ultrasound transducer. # OF IMAGES: 49 COMPARISON: Comparison is made with prior mammogram done earlier today. FINDINGS: LEFT Breast: The medial aspect of the left breast was examined with ultrasound. There is dense residual fibroglandular tissue. No sonographic abnormality is seen. US/Breast Limited Unilateral IMPRESSION: No sonographic abnormality is seen. ASSESSMENT CATEGORY: BIRADS Category 1: Negative. A letter regarding these results will be sent to the patient by the facility within 30 days. Electronically Signed: Vitaliy Perera MD at 12:52 EDT ,
== END | disposition home or self-care (01) ==
LOC: OPBI 10:39
PROVIDERS: Referring Provider Nurse Practitioner Family; Visit Provider Nurse Practitioner Family
DX: N64.4 Mastodynia (principal); N63.10 Unspecified lump in the right breast, unspecified quadrant; Z98.890 Other specified postprocedural states; N63.20 Unspecified lump in the left breast, unspecified quadrant
CPT/HCPCS: 76642

== ENCOUNTER 2023-09-24 04:20 | Emergency (ER) | payer OTHER, SELFPAY ==
[2023-09-24 04:21] VITALS: BP 178/101; PULSE 98; RESP 18; TEMP 36.8; O2SAT 97; BMI 38.4
--- NOTE | 2023-09-24 04:44 | CT_ITS ---
ACR Level 3 findings have been noted. An addendum which confirms receipt of the report will follow. INDICATION: abd pain EXAMINATION: CT ABDOMEN AND PELVIS WITH CONTRAST - CT Abdomen And Pelvis W/ Contrast Injection TECHNIQUE: Helically acquired images were obtained of the abdomen and pelvis following IV contrast. A radiation dose optimization technique was used for this scan. IV Contrast dosage and agent: 75 mL [id number]-370 Oral contrast: None. COMPARISON: December 29, 2021. FINDINGS: LOWER CHEST: Lung bases are clear. No cardiomegaly or pericardial effusion. LIVER: Homogeneous. No focal mass. GALLBLADDER AND BILIARY TREE: Gallbladder well filled with multiple stones up to 1.8 cm in size.. No intra- or extrahepatic biliary ductal dilation. PANCREAS: Extensive diffuse peripancreatic inflammatory stranding with small bilateral layering fluid along the right and left posterior peritoneum. No evidence of active contrast extravasation. There is relative hypoenhancement of the pancreatic body and tail posterior inferior margin spanning a region of approximately 2.9 x 1.2 cm, coronal image 57 and axial image 36. No pancreatic ductal dilatation. No organized abscess. No free air. SPLEEN: Normal size without focal cystic or solid mass. No splenic vein thrombosis. ADRENAL GLANDS: No nodules. KIDNEYS AND URETERS: Normal renal size and position. No hydronephrosis. BOWEL: No acute gastric finding. No small bowel distention or focal wall thickening. Prior appendectomy. No acute colonic finding. . LYMPH NODES: No enlarged mesenteric or retroperitoneal lymph nodes. VESSELS: Aorta is non-dilated. URINARY BLADDER: Unremarkable. REPRODUCTIVE ORGANS: Absent uterus. No evidence of adnexal mass.. ABDOMINAL WALL: Tiny fat-containing umbilical hernia without inflammation. No discrete abdominal or pelvic wall hernia. BONES: No lytic or blastic abnormality. CT/Abdomen/Pelvis W IV Cont ONLY IMPRESSION: Acute pancreatitis with concern for localized early necrosis along the pancreatic body. Extensive surrounding inflammation with small volume layering free fluid in the abdomen and pelvis. Cholelithiasis without gross biliary ductal dilatation. Electronically Signed: Nomi Porter MD at 6:02 EST ,
[2023-09-24] MEDS: Ondansetron 4 MG/2 ML Vial IV (04:52)
[2023-09-24] MEDS: Morphine 4 MG/ML Syringe IV (04:53)
[2023-09-24] MEDS: 0.9% Normal Saline (1000mL) 1,000 ML 999 ML IV ×2 (04:55→05:57)
[2023-09-24 04:58] LABS: Absolute Lymphocyte Count 0.47 X10^3/uL (0.83-4.51); Absolute Neutrophil Count 9.9 X10^3/uL (2.0-7.7); Basophil# 0.01 X10^3/uL; Basophil% 0.1 % (0-1); Hematocrit 44.7 % (37-47); Hemoglobin 14.5 g/dL (12.0-15.0); Lymphocyte # 0.47 X10^3/ul (0.83-4.51); Lymphocyte % 4.3 % (19-41); Mean Corp Hgb Conc 32.4 g/dL (32-36); Mean Corpuscular Hgb 26.9 pg (27.0-32.0); Mean Corpuscular Volume 82.8 fL (81-99); Mean Platelet Vol. 11.6 fl (6.2-12.0); Monocyte# 0.54 X10^3/uL; Monocyte% 4.9 % (0-10); NRBC Flagged by Analyzer 0 % (0-5); Neutrophil # 9.86 X10^3/uL (2.7-7.7); Neutrophil % 90.4 % (47-70); POSITIVE DIFFERENTIAL YES; Platelet Count 262 K/mm3 (150-450); RBC Distribution Width CV 14.5 % (11.6-14.6); RBC Distribution Width SD 43.3 fl (35.1-43.9); White Blood Count 10.9 K/mm3 (4.4-11.0)
[2023-09-24] MEDS: HYDROmorphone 1 MG/ML Syringe IV ×3 (05:18→10:27)
[2023-09-24 05:43] LABS: Lactic Acid 5.4 mmol/L (0.4-1.9)
--- OUTSIDE RECORDS SUMMARY | 2023-09-24 05:45 | XMS RPT_ITS | CCD ---
Author Name Unknown Address [address] [place] [address] Organization [facility] Allergies Allergy Classification Reported Allergen(s) Allergy Type Date of Onset Reaction(s) Facility (1 source) Penicillins; Translations: [PENICILLINS] Propensity to adverse reactions to drug (disorder) [facility] Repository (1 source) OTHER; Translations: [OTHER] Propensity to adverse reactions (disorder) [address] [place] [address] Repository Results Test Name Value Interpretation Reference Range Facil ity Encounters Encounter Date Encounter Type Care Provider Facility Start: 11-19-2017 End: 11-20-2017 [facility] Start: 11-14-2017 End: 11-15-2017 [facility] Summary Purpose Family History No Family History Records Found Advance Directives No Advanced Directives Records Found Additional Source Comments INFORMATION SOURCE (unrecogn ized section and content) FOR RECORDS PERTAINING TO PATIENTS WHO ARE OR HAVE BEEN ENROLLED IN A CHEMICAL DEPENDENCY/SUBSTANCEABUSE PROGRAM, SOME INFORMATION MAY BE OMITTED. This clinical summary was aggregated from multiple sources. Caution should be exercised in using it in the provision of clinical care. This summary normalizes information from multiple sources, and as a consequence, information in this document may materially change the coding, format and clinical context of patient data. In addition, data may be omitted in some cases. CLINICAL DECISIONS SHOULD BE BASED ON THE PRIMARY CLINICAL RECORDS. [employer] provides no warranty or guarantee of the accuracy or completeness of information in this document.
[2023-09-24 06:12] LABS: AST(SGOT) 92 U/L (15-37); Alanine Aminotransfer ALT/SGPT 172 U/L (13-56); Albumin, Serum 4.1 g/dL (3.2-5.0); Alkaline Phosphatase 206 U/L (45-117); Anion Gap 12 (5-15); BUN 17 mg/dL (7-18); BUN/Creat Ratio 16.2 RATIO (10-20); Bilirubin, Direct 0.23 mg/dL (0.00-0.30); Calcium,Total 9.2 mg/dL (8.5-10.1); Chloride 107 mmol/L (98-107); Creatinine, Serum 1.05 mg/dL (0.55-1.02); EST Glomerular Filtration Rate 58 mL/min (>60); Est Glom Filt Rate - Afr Amer 70 mL/min (>60); Estimated Creatinine Clearance 66.67 ml/min; Globulin 3.9 g/dL (2.2-4.2); Glucose 213 mg/dL (74-106); Lipase 1291 U/L (13-75); Potassium 3.6 mmol/L (3.5-5.1); Sodium Level 142 mmol/L (136-145)
[2023-09-24] MEDS: Orphenadrine 60 MG/2 ML Ampul IV (06:17)
[2023-09-24] MEDS: HYDROmorphone 0.5 MG/0.5 ML SYRINGE IV (06:18)
[2023-09-24 06:46] VITALS: BP 165/88; PULSE 89; RESP 18; TEMP 36.6; O2SAT 90
--- NOTE | 2023-09-24 08:30 | EX.ED.DYSGE1 ---
HPI History of Present Illness Chief Complaint: Abd Pain Informant: patient and spouse/S.O. Narrative Narrative: Patient is a 53-year-old female with past medical history of of anxiety/depression along with hypertension and chronic hearing loss. She also has past medical history of cholelithiasis. She states that last night around 6 PM she noticed pain in the midepigastric region of her abdomen. She states that it was initially mild in nature but as time passed the pain progressed in severity and encompassed more of her abdomen and also led to bouts of nausea and vomiting. She admits to history of gallstones but states that symptoms did not worsen after eating and she denies any history of alcohol use. She states that she has had her appendix and uterus removed in the past but denies any previous history of obstructions and also states she has had a few episodes of loose stool with the onset of the pain. However as it has been constant throughout the night and not resolving with medication she presents for evaluation [facility] Medical History Acute postoperative anemia due to expected blood loss Allergies Anxiety Back problem Breast mass, left Breast mass, right Breast pain, left Breast pain, right Cataracts, bilateral Chronic left shoulder pain Chronic neck pain (~05/2023) Chronic right shoulder pain Chronic thoracic back pain Depression Depression with anxiety Fat necrosis of both breasts Hearing decreased Hearing problem Heartburn Hypertension Intertrigo Loss of hearing Macromastia Migraine headache Non-smoker Pneumonia Postoperative atelectasis Postoperative stitch abscess Restless legs Ulcer of skin of breast Wears glasses Wears hearing aid Home Medications hydrochlorothiazide 25 mg tablet 12.5 mg PO DAILY 08/26/15 [History Last Taken 11/14/22] cetirizine 10 mg tablet (Zyrtec) 10 mg PO DAILY 12/29/21 [History Last Taken 11/14/22] fluoxetine 40 mg capsule 40 mg PO DAILY 12/29/21 [History Last Taken 11/14/22] multivitamin (Daily Multi-Vitamin tablet) 1 tab PO DAILY 08/31/22 [History Last Taken 11/14/22] Allergy/AdvReac Type Severity Reaction Status Date / Time Penicillins [PCN] Allergy Rash Verified 06/27/23 10:13 Family History Father , 10/04/2015 Alcoholism Arthritis Hypertension Brain tumor Brain cancer Mother Depression Osteoarthritis Thyroid disorder Grandfather Alcoholism Grandmother Arthritis Grandmother Hypertension CVA (cerebral vascular accident) Grandfather Lung cancer Surgical History Endometriosis H/O: hysterectomy History of appendectomy History of bilateral breast reduction surgery Social History Smoking Status: Never smoker alcohol intake: current details: occasional beer or liquor substance use type: does not use what type of physical activity do you participate in: walking ROS ROS ED Constitutional Constitutional ED: Denies chills or fever(s) Eyes Eyes: Denies change in vision ENT ENT ED: Denies sore throat Cardiovascular Cardiovascular: Denies chest pain Respiratory/Chest Respiratory/Chest: Denies cough or dyspnea Gastrointestinal Gastrointestinal: Reports abdominal pain, diarrhea, nausea and vomiting Genitourinary Genitourinary ED: Denies dysuria or hematuria Musculoskeletal Musculoskeletal: Denies myalgias Integumentary Denies rash Neurologic Neurologic: Denies headache(s) Hematologic/Lymphatic Hematologic/Lymphatic: Denies easy bleeding or easy bruising EXAM Physical Exam Const Vital Signs: 09/24/23 04:21 09/24/23 06:46 Temperature 98.2 F 97.8 F Temperature Source Temporal Temporal Pulse Rate 98 89 Respiratory Rate 18 18 Blood Pressure 178/101 H 165/88 H Blood Pressure Mean 126 113 Pulse Ox 97 90 Oxygen Delivery Method Room Air Room Air Positive well nourished, well developed and obese General Appearance ED: well developed Nutritional Appearance: obese HEENT Reports moist mucous membranes HEENT Narrative: No tongue or lip swelling no oral lesions no airway edema or compromise No signs of infection noted in the posterior pharynx Eyes PERRL and EOMs intact bilaterally General Eye ED: Negative for scleral icterus Neck supple Neck Narrative: No nuchal rigidity or meningeal signs Chest Wall palpation of chest normal Resp normal respiratory effort and clear to auscultation bilaterally Resp Narrative: No nasal flaring retractions tachypnea or accessory muscle use Cardio regular rate and regular rhythm Rate: other Other Details: Heart is regular rate and rhythm without murmurs rubs or gallops Radial and carotid pulses are equal and symmetric GI non-distended GI Narrative: Abdomen is soft and nondistended with normal active bowel sounds. Patient has diffuse pain with palpation that is greatest in the midepigastric region without voluntary guarding or rigidity. No pulsatile mass or fluid wave. Auscultation: normoactive bowel sounds Palpation: soft Back/Spine no CVA tenderness Extremity normal to inspection Neuro oriented x3 and CN's II-XII intact bilaterally Sensorium / Orientation: alert Motor Exam: strength 5/5 throughout Psych mental status grossly normal Skin no rashes or lesions noted General Skin Exam: Negative for jaundice MDM MDM MDM Narrative Medical decision making narrative: Patient presented to the ER hypertensive but has a past medical history of this and is in the pain. Otherwise vitals are stable. Patient reported midepigastric pain that has been constant since 6 PM. She has a known history of gallstones but states that the pain did not seem to onset after eating. Differential diagnosis is for biliary colic versus acute cholecystitis versus gallstone pancreatitis versus colitis versus viral gastroenteritis versus small bowel obstruction. Secondary to this basic labs were obtained with a CT scan with IV contrast. Blood work revealed normal white count but her lactic is elevated at 5.4. Otherwise there is no severe electrolyte abnormality or signs of acute kidney injury. Her liver enzymes are elevated however and her lipase is elevated approximately 1300 concerning for gallstone pancreatitis. CT scan did confirm acute pancreatitis with signs of early necrosis. Secondary to the necrosis the case was discussed with general surgeon Dr. Al. He states that because of the large amount of gallstones present on her scan the fact she has pancreatic inflammation with early necrosis that she will need multifocal treatment with general medicine general surgery gastroenterology and potential interventional radiology. All of these specialties are not available at this facility at this time and therefore is recommended that she be transferred. As she does not have a fever or white count it was felt that this was sterile necrosis and does not require IV antibiotics at this moment. The need for transfer was discussed with patient and and both agreed to it and they request [facility]. Therefore they were contacted and given patient's physical exam CT scan results and laboratory results. The case was reviewed by [facility] general surgeon Dr. Eliz Peña. She feels that with the patient's necrotizing pancreatitis that she needs to be evaluated quickly and recommend transfer from ER to ER. Therefore the case was discussed with the ER physician Dr. Wu who agrees to accept the patient at this time. History & Record Review Discussion w/independent historian: Patient and Significant other Lab Data Attestation: I reviewed the patient's lab results. Labs: Laboratory Results - last 24 hr 09/24/23 09/24/23 04:30 04:50 WBC 10.9 RBC 5.40 Hgb 14.5 Hct 44.7 MCV 82.8 MCH 26.9 L MCHC 32.4 RDW Std Deviation 43.3 RDW Coeff of Michelle 14.5 Plt Count 262 MPV 11.6 Immature Gran % (Auto) 0.300 Neut % (Auto) 90.4 H Lymph % (Auto) 4.3 L [place] % (Auto) 4.9 Eos % (Auto) 0.0 Baso % (Auto) 0.1 Absolute Neuts (auto) 9.9 H Absolute Lymphs (auto) 0.47 L Nucleated RBC % 0 Sodium 142 Potassium 3.6 Chloride 107 Carbon Dioxide 23.0 Anion Gap 12 BUN 17 Creatinine 1.05 H Estim Creat Clear Calc 66.67 Est GFR (MDRD) Af Amer 70 Est GFR (MDRD) Non-Af 58 L BUN/Creatinine Ratio 16.2 Glucose 213 H Lactic Acid 5.4 H* Calcium 9.2 Total Bilirubin 0.80 Direct Bilirubin 0.23 AST 92 H ALT 172 H Alkaline Phosphatase 206 H Total Protein 8.0 Albumin 4.1 Globulin 3.9 Lipase 1291 H Radiography Diagnostic Testing: Clinical Impression(s) from Imaging Studies Abdomen/Pelvis CT 09/24/23 04:44 IMPRESSION: Acute pancreatitis with concern for localized early necrosis along the pancreatic body. Extensive surrounding inflammation with small volume layering free fluid in the abdomen and pelvis. Cholelithiasis without gross biliary ductal dilatation. Electronically Signed: Nomi Porter MD at 6:02 EST Reading Location ID and State: [facility] / [place] Tel , Service support , ADDENDUM: 09/24/23 0611 IMPRESSION: Acute pancreatitis with concern for localized early necrosis along the pancreatic body. Extensive surrounding inflammation with small volume layering free fluid in the abdomen and pelvis. Cholelithiasis without gross biliary ductal dilatation. N.B. : Otto Velez DO, confirmed on 09/24/2023 06:04:25 (ET) that the healthcare facility has received the radiology report. Electronically Signed: Nomi Porter MD at 6:02 EST , Critical Care Time Critical Care Time: Yes Critical care time (excluding procedures): Discussing w/Patient &/or Family/Seo Strategist, Discussing w/Consultants, Arranging Admission or Transfer and - (Please note critical care time of 33 minutes) Discharge Plan Triage Chief Complaint: Abd Pain ED Provider: Otto Velez Dx/Rx/DC Orders Clinical Impression: Hypertension, Cholelithiasis, Acute necrotizing pancreatitis Prescriptions: No Action multivitamin [Daily Multi-Vitamin] Tablet 1 tab PO DAILY hydrochlorothiazide 25 MG tablet 12.5 mg PO DAILY Patient Comments: blood pressure fluoxetine 40 mg capsule 40 mg PO DAILY Patient Comments: TAKE 1 CAPSULE BY MOUTH ONCE DAILY cetirizine [Zyrtec] 10 mg Tablet 10 mg PO DAILY Primary Care Provider: Eliz Weems Referrals: Eliz Weems MD [Primary Care Provider] - Disposition Disposition: Acute Care Hospital Discharge Location: [facility]
[2023-09-24] MEDS: 0.9% Normal Saline (1000mL) 1,000 ML 200 ML IV (08:51)
[2023-09-24 08:59] VITALS: BP 167/99; PULSE 105; RESP 16; O2SAT 96
[2023-09-24 09:07] LABS: Reflex Lactate? Y
[2023-09-24 09:30] LABS: Lactic Acid 2.1 mmol/L (0.4-1.9)
[2023-09-24 12:57] LABS: Reflex Lactate? Y
== END 2023-09-24 10:36 | disposition short-term general hospital (02) ==
PROVIDERS: Emergency Provider Emergency Medicine; PCP Family Medicine; Visit Provider Emergency Medicine
DX: K85.91 Acute pancreatitis with uninfected necrosis, unspecified (principal); K80.20 Calculus of gallbladder without cholecystitis without obstruction; I10 Essential (primary) hypertension; Z90.49 Acquired absence of other specified parts of digestive tract; E66.9 Obesity, unspecified
CPT/HCPCS: 74177; 80048; 80076; 83605; 83690; 85025; 96361; 96374; 96375; 96376; 99284; J7030; Q9967; A4216; J2405

== ENCOUNTER → 2023-11-28 | Outpatient (CLI) | payer OTHER, SELFPAY ==
--- NOTE | 2023-11-28 09:29 | US_ITS ---
STUDY: ULTRASOUND BREAST - RIGHT REASON FOR EXAM: Female, 53 years old. Palpable lump in the right breast. TECHNIQUE: Axial and longitudinal images of the RIGHT breast were performed with a high resolution ultrasound transducer. # OF IMAGES: 46 COMPARISON: Comparison is made with prior mammogram dated November 28, 2023. FINDINGS: RIGHT Breast: The lateral aspect of the right breast was examined with ultrasound. Heterogeneous breast tissue. No abnormality is seen. IMPRESSION: No sonographic abnormality is seen. ASSESSMENT CATEGORY: BIRADS Category 1: Negative. A letter regarding these results will be sent to the patient by the facility within 30 days. Electronically Signed: Vitaliy Perera MD at 9:29 EDT , STUDY: ULTRASOUND BREAST - LEFT REASON FOR EXAM: Female, 53 years old. Palpable lump left breast. Prior bilateral breast reduction surgery. TECHNIQUE: Axial and longitudinal images of the LEFT breast were performed with a high resolution ultrasound transducer. # OF IMAGES: 46 COMPARISON: Comparison is made with prior mammogram dated November 28, 2023. FINDINGS: LEFT Breast: There is a 4.1 cm x 2.9 cm x 1.7 cm heterogeneous breast tissue suggestive of postoperative scarring. This is at the 12:00 position of the breast at 3 cm from the nipple. This is in keeping with the prior surgery. US/Breast Limited Unilateral IMPRESSION: The palpable abnormality corresponds to heterogeneous breast tissue suggestive of postoperative scarring. ASSESSMENT CATEGORY: BIRADS Category 2: Benign. A letter regarding these results will be sent to the patient by the facility within 30 days. Electronically Signed: Vitaliy Perera MD at 9:30 EDT ,
--- NOTE | 2023-11-28 09:29 | BI_ITS ---
MAMMOGRAPHY - BILATERAL DIAGNOSTIC REASON FOR EXAM: Female, 53 years old. Bilateral breast lumps following breast reduction surgery. PERTINENT HISTORY: Non-contributory. TECHNIQUE: Digital bilateral breast sheila (3D mammographic acquisition) in the CC and MLO projections. 2-D mediolateral oblique (MLO) and craniocaudad (CC) views of both breasts were obtained. CAD: Full Field Digital Mammography with Computer Added Detection was performed. COMPARISON: Comparison is made with prior study dated March 08, 2023 and July 01, 2020. FINDINGS: Breast Composition: The breasts are heterogeneously dense, which may obscure small masses. There are no dominant masses or suspicious calcifications. Stable bilateral benign-appearing axillary lymph nodes. The patient is status post bilateral breast reduction surgery. No other significant abnormalities are identified. BI/DIAG MAMM W/CAD, BILAT IMPRESSION: Status post bilateral breast reduction surgery. One year follow-up recommended. (A) ASSESSMENT CATEGORY: BIRADS Category 2: Benign. A letter regarding these results will be sent to the patient by the facility within 30 days. Approximately 10% of breast cancers are not detected by mammography. A normal mammogram should not delay biopsy of a clinically suspicious abnormality. Electronically Signed: Vitaliy Perera MD at 12:46 EDT ,
[2023-11-28 10:57] LABS: Magnesium 2.2 mg/dL (1.6-2.6)
== END | disposition home or self-care (01) ==
PROVIDERS: Anesthesiology; PCP Family Medicine; Referring Provider Nurse Practitioner Family; Visit Provider Nurse Practitioner Family
DX: Z01.818 Encounter for other preprocedural examination (principal); N63.10 Unspecified lump in the right breast, unspecified quadrant; N64.4 Mastodynia; N64.1 Fat necrosis of breast; Z98.890 Other specified postprocedural states; N63.20 Unspecified lump in the left breast, unspecified quadrant; H91.90 Unspecified hearing loss, unspecified ear
CPT/HCPCS: 36415; 76642; 77062; 77063; 77066; 83735; G0279

== ENCOUNTER 2023-12-07 08:21 | Day surgery (SDC) | payer OTHER, SELFPAY ==
[2023-12-07] VITALS (10 sets, daily range): BP systolic 98–163; BP diastolic 69–99; PULSE 71–89; RESP 14–16; TEMP 36.1–37.3; O2SAT 89–99; BMI 37.8
--- NOTE | 2023-12-07 | IMM_PTH ---
PATIENT: KORINA ROSSI LOC: [facility] [place] U#:[id number] AGE/SX: 53/F ROOM: RE12/07/[address]: Dr. Nicholas Trejo MD : 1970 BED: DIS: 12/07/2023 SPEC #: [id number] RECD: 12/12/23 12:46 STATUS: MESFIN REQ #: [id number] HARPAL: 12/07/23 00:[address]: Nicholas Trejo DEPT: IMMUNOHISTOCHEMISTRY RECD BY: Ron Davidson ENTERED: 12/12/23 12:47 SP TYPE: IMMUNO OTHR DR: Dr. Eliz Weems MD Tissues: A - Breast, NOS B - Breast, NOS Procedures: CD45 (add) CK8 (add) Vimentin (add) Pankeratin (initial) CD68 (ADD) PHYSICIAN & INSTITUTION [place] [id number] SPECIMEN INFORMATION: Tissue Source: A- Right breast mass supramedial nipple, B- Right breast mass supralateral nipple Clinical Info: Excision of painful masses x3 right breast Specimen Number: [id number] A&B CPT code: 70984i1,46071g1 METHODOLOGY: Deparaffinized sections of prefer/formalin-fixed tissue or PAP/DQ stained slides are incubated with monoclonal/polyclonal antibodies/oligonucleotide probes. Localization is made via biotin free immunoperoxidase method. Appropriate controls are performed and reacted as expected. Results on target cell population are indicated in the following table: RESULTS: ANTIBODY / CLONE RESULT Block A 3 AE1-3 (AE1/AE3/PCK26) negative CD68 (KP-1) positive Vimentin (V9) positive CK8 ([id number]) negative CD45 (RP2/18) negative Block B1 AE1-3 (AE1/AE3/PCK26) negative CD68 (KP-1) positive Vimentin (V9) positive CK8 ([id number]) negative CD45 (RP2/18) negative These tests were developed and their performance characteristics determined by [facility]. They may not have been cleared or approved by the U.S. Food and Drug Administration. The FDA has determined that such clearance or approval is not necessary. The above immunohistochemical/dualISH markers are ordered and reviewed by the Pathologist. INTERPRETATION: A. Right breast mass supramedial nipple, excision: No evidence of malignancy. B. Right breast mass supralateral nipple, excision: No evidence of malignancy. AM/mr 5/2/24
--- NOTE | 2023-12-07 | MASS_PTH ---
PATIENT: KORINA ROSSI LOC: [facility] [place] U#:[id number] AGE/SX: 53/F ROOM: RE12/07/[address]: Dr. Nicholas Trejo MD : 1970 BED: DIS: 12/07/2023 SPEC #: [id number] RECD: 12/07/23 14:05 STATUS: MESFIN RECharito #: [id number] HARPAL: 12/07/23 00:[address]: Nicholas Trejo DEPT: SURGICAL PATHOLOGY RECD BY: Charles Zeng ENTERED: 12/10/23 10:54 SP TYPE: Mass OTHR DR: Dr. Eliz Weems MD Tissues: A - Right breast, NOS B - Right breast, NOS C - Right breast, NOS Procedures: Surgery Specimen Level IV HEADER OPERATION: ERAS, Excision painful masses x3 right breast PRE-OP DIAGNOSIS: Excision painful masses x3 right breast TISSUE SUBMITTED: A- Right breast mass supra medial nipple, B- Right breast mass supra lateral nipple, C- Right breast mass inferior medial MICROSCOPIC DIAGNOSIS A. Right breast mass, supra medial nipple, excision: Fibrosis fat necrosis and benign histiocytic reaction with foreign body giant cells. Focal intraductal hyperplasia without atypia. See comment. B. Right breast mass, supra lateral nipple, excision: Fat necrosis, fibrosis and associated benign histiocytic reaction See comment C. Right breast mass inferior medial, excision: Skin with underlying soft tissue containing recent hemorrhage and fibrosis. No evidence of malignancy. AM/mr 12/12/23 COMMENT A&B. Immunohistochemistry ([id number]) supports the above diagnosis. MICROSCOPIC DESCRIPTION Slides are reviewed. GROSS DESCRIPTION A. Received in fixative is one container labeled with the patient's name and designated Right breast mass supra medial to nipple. The specimen consists of multiple irregular and rubbery fragments of caicedo-yellow soft tissue measuring in aggregate 7.0 x 5.0 x 1.2cm. Serially sections reveal yellow to caicedo cut surfaces. [employer] sections are submitted in four cassettes. B. Received in fixative is one container labeled with the patient's name and designated Right breast mass supra lateral to nipple. The specimen consists of multiple irregular and rubbery fragments of caicedo-yellow soft tissue measuring in aggregate 5.5 x 5.0 x 2.0cm. Serially sections reveal yellow to caicedo cut surfaces. Healthcare Recruiter sections are submitted in four cassettes. C. Received in fixative is one container labeled with the patient's name and designated Right breast mass inferior medial. The specimen consists of an irregular fragment of light caicedo tissue measuring 2.2 x 0.5 x 0.5cm. The specimen is submitted in its entirety in one cassette. AM/mr 12/11/23 TC:3 CPT: 19354o9
--- NOTE | 2023-12-07 08:13 | PCM.HP.BLA ---
History and Physical Date of Admission: 12/07/23 HISTORY OF PRESENT ILLNESS 53 year old woman presents with bilateral breast masses after her breast reduction mammaplasty on November 15, 2022. Tissue removed from the left breast was 1448 grams.? Tissue removed from the right breast was 1454 grams.? Pathology of both breasts showed nonproliferative fibrocystic change.? No malignancy noted. During the recovery process she developed some firmness in each breast mostly superiorly that was painful when bumped.? The healing process was slowed down with wound breakdown at the Tzone and nipple incisions. These breast wounds responded to wound care with Silver dressing changes and associated antibiotics (Flagyl for Anaerobic cocci from wound culture done on 12/12/22.) Once the breast wounds at the Tzone areas healed, her pain noticeably improved, and her firmness in her breasts superiorly have gotten smaller as well. In March,, she was concerned because the pain increased again. This prompted an Ultrasound of each breast on April 11, 2023. it showed in the right breast a 6 mm x 6 mm x 5 mm cyst at the 3:00 position of the breast at 3 cm from the nipple. Dense residual breast tissue is seen. In the medial aspect left breast, there was dense residual fibroglandular tissue. No sonographic abnormality was seen. She had a preop mammogram on 11/28/23. It showed le bilateral benign-appearing axillary lymph nodes. The patient is status post bilateral breast reduction surgery. An ultrasound was done on 11/28/23. It showed The breasts are heterogeneously dense, which may obscure small masses. There are no dominant masses or suspicious calcifications. Stable bilateral benign-appearing axillary lymph nodes. The patient is status post bilateral breast reduction surgery. An ultrasound was done on 11/28/23. It showed The right breast on the lateral aspect of the right breast was examined with ultrasound. Heterogeneous breast tissue. No abnormality is seen. The left breast showed a 4.1 cm x 2.9 cm x 1.7 cm heterogeneous breast tissue suggestive of postoperative scarring. This is at the 12:00 position of the breast at 3 cm from the nipple. This is in keeping with the prior surgery. In previous discussions, these masses are not cancerous but probably fat necrosis. In a bilateral breast reduction mammaplasty, a lot of incisions are made through the fatty breast tissue and combine that with fat tissue having poor blood supply, and fat necrosis is the result. Most of the time these areas of fat necrosis dissolve on their own. If they don't dissolve, then the next step is surgical removal of these masses. The importance of this is that the residual fat necrosis can interfere with breast cancer surveillance in the future if not removed. ALLERGIES Penicillins [PCN] MEDICATIONS hydrochlorothiazide cetirizine (Zyrtec) fluoxetine multivitamin (Daily Multi-Vitamin tablet) PAST MEDICAL HISTORY Acute postoperative anemia due to expected blood loss Anxiety Back problem Breast mass, left Breast mass, right Breast pain, left Breast pain, right Cataracts, bilateral Chronic left shoulder pain Chronic neck pain (~05/2023) Chronic right shoulder pain Chronic thoracic back pain Depression with anxiety Fat necrosis of both breasts Granuloma due to infection Hearing decreased Hearing problem Heartburn Hypertension Intertrigo Loss of hearing Macromastia Migraine headache Non-smoker Pneumonia Postoperative atelectasis Postoperative stitch abscess Restless legs Ulcer of skin of breast Wears glasses Wears hearing aid PAST SURGICAL HISTORY Endometriosis H/O: hysterectomy History of appendectomy History of bilateral breast reduction surgery History of cholecystectomy FAMILY HISTORY Father , 10/04/2015 Alcoholism Arthritis Hypertension Brain tumor Brain cancerMother Depression Osteoarthritis Thyroid disorderGrandfather AlcoholismGrandmother ArthritisGrandmother Hypertension CVA (cerebral vascular accident)Grandfather Lung cancer SOCIAL HISTORY Smoking Status: Never smoker alcohol intake: current details: occasional beer or liquor substance use type: does not use REVIEW OF SYSTEMS General - Denies fever.? Has fatigue. Has had intentional 40 lb weight loss over last 3 years.? Eyes - Has cataracts.? Denies glaucoma. ENT - Denies nasal congestion and sore throat.? Patient is hard of hearing.? She can read lips and wears hearing aids. Endocrine - Denies excessive thirst and urination. She has bilateral breast pain with several firm areas after having her breast reduction. Skin - Denies suspicious lesions and skin cancer.? Has family history of skin cancer. Musculoskeletal - Has joint pain, joint stiffness, weakness of muscles and joints.? ? Her neck and back pain involve cervical and thoracic area has resolved since her breast reduction on 11/15/22.? Denies arthritis.? Neuro - Denies headaches. Cardiovascular - Denies chest pain and fatigue.? Denies shortness of breath with exertion. Psych - Denies anxiety and depression. Respiratory - Denies shortness of breath.? Denies chronic cough.? Gastrointestinal - Denies nausea, vomiting, diarrhea, and constipation. Hematologic - Denies abnormal bruising and bleeding. Genitourinary - Denies hematuria and urinary frequency. PHYSICAL EXAMINATION General - Alert and oriented. HEENT - PERRL. EOMI. Throat is clear. Neck - Supple.? No bony tenderness.? There was some pericervical soft tissue tenderness that improved after her breast reduction surgery. Lungs- Clear to auscultation. Heart - Regular rate and rhythm. Breasts - Soft and symmetrical. Incisions have healed well. She has a firm mass in the right breast 4.5 cm from the superolateral nipple and measures approximately 2 cm. She also has a firm mass in the right breast 2 cm from superomedial nipple and measures approximately 3 cm. She has a firm mass in the left breast 2 cm from the superior nipple and measures approximately 3 cm. In the medial aspect right breast along the medial aspect of the horizontal incision is a slight bulge and associated scar contour deformity. She may have had a localized stitch abscess that spontaneously drained at some point. in this case, the residual granuloma is present and tender when bumped. The scar contour deformity measures approximately 2 cm. Abdomen - Soft and non distended. Back - No bony tenderness noted.? There was perivertebral soft tissue tenderness in the upper thoracic area that improved after the breast reduction. Extremities - FROM.? No axillary adenopathy.? Radial pulses are palpable. There is some bilateral shoulder tenderness with shoulder grooving from the weight of her breasts on her bra straps that improved as well after the breast reduction. Neuro - CN II-XII grossly intact. Psych - Normal and mood and affect. ASSESSMENT 1.? 2 cm painful mass right breast 4.5 cm from the superolateral nipple, clinically fat necrosis. 2. 3 cm painful mass right breast 2 cm from the superomedial nipple, clinically fat necrosis. 3. 3 cm painful mass left breast 2 cm from the superior nipple, clinically fat necrosis. 4. Painful 2 cm scar contour deformity medial aspect right breast along the medial aspect of the horizontal incision, clinically residual granuloma from previous local stitch abscess. 5. Status bilateral breast reduction mammoplasty. 6. Hard of hearing. PLAN Mammogram and Ultrasound from April 11, 2023 were reviewed. Patient had bilateral breast reduction mammaplasty on November 15, 2022, and developed persistent residual painful masses in bilateral breasts (superolateral nipple right breast, superomedial nipple right breast, and superior nipple left breast). These masses improved and decreased in size initially. However they are persistent and surgical excision is recommended. Will send the masses to Pathology for analysis to rule out carcinoma. If carcinoma is present, then further excision will be done (for example, completion mastectomy, partial mastectomy, lumpectomy, nipple sparing mastectomy, skin sparing mastectomy, prophylactic mastectomy on opposite breast). The choice would be made between the patient and her Breast Surgeon. The painful scar contour deformity medial aspect right breast along the medial aspect of the horizontal incision will also be excised and the deformity revised. The painful scar contour deformity was the result of a clinically residual granuloma from a previous local stitch abscess. A mammogram was done on 11/28/23. It showed The breasts are heterogeneously dense, which may obscure small masses. There are no dominant masses or suspicious calcifications. Stable bilateral benign-appearing axillary lymph nodes. The patient is status post bilateral breast reduction surgery. An ultrasound was done on 11/28/23. It showed The right breast on the lateral aspect of the right breast was examined with ultrasound. Heterogeneous breast tissue. No abnormality is seen. The left breast showed a 4.1 cm x 2.9 cm x 1.7 cm heterogeneous breast tissue suggestive of postoperative scarring. This is at the 12:00 position of the breast at 3 cm from the nipple. This is in keeping with the prior surgery. We are planning excision of these painful breast masses, doing the right breast first followed by the left breast. Surgery will be done under general anesthesia on an outpatient basis. Depending on the extent of the dissection, drains may be needed for 7-10 days. She will wear a compression olivia wrap. Patient was informed of the risks and complications of the procedure including alternatives to surgery. These were discussed with the patient personally. Patient voices understanding and wishes to proceed. Some of the risks and complications were included in a form from the [employer]. Potential risks and complications included but not inclusive of bleeding, infection, seroma, hematoma, bruising, swelling, prolonged need for drains, loss of sensation to skin, partial or complete loss of skin flap and/or nipple, wound breakdown, need for wound care, poor scarring, poor aesthetic outcome, intra operative cardiac or neurologic events, DVT, PE, and reaction to anesthesia. She is scheduled for right after Thanksgiving when her mom is in town to assist her postoperatively.
[2023-12-07] MEDS: Lactated Ringers 1,000 ML 40 ML IV (08:56)
[2023-12-07] MEDS: Magnesium 1 GM over 15 mins IV (08:57)
[2023-12-07] MEDS: Scopolamine 1mg/72hr Patch 1 PATCH TD (08:57)
[2023-12-07] MEDS: Acetaminophen 500 MG Tablet 1000 MG PO (08:57)
[2023-12-07] MEDS: Gabapentin 600 MG Tablet PO (08:58)
[2023-12-07 09:33] LABS: Bedside Glucose 79 mg/dL (74-106)
[2023-12-07] MEDS: Clindamycin 900 MG/50 ML BAG 75 MG IV (10:20)
[2023-12-07] MEDS: Lidocaine 1% /Epi 1:100 (20ml) 20 ML Vial (11:33)
--- NOTE | 2023-12-07 12:17 | OP.PCM_ITS ---
Report of Operation Date of Procedure: 12/07/23 Pre-Operative Diagnosis: 1. 2 cm painful mass right breast 4.5 cm from the sup erolateral nipple, clinically fat necrosis. 2. 3 cm painful mass right breast 2 cm from the superomedial nipple, clinically fat necrosis. 3. Painful 2 cm scar contour deformity medial aspect right breast along the medial aspect of the horizontal incision, clinically residual granuloma from previous local stitch abscess. 4. Status bilateral breast reduction mammoplasty. Post-Operative Diagnosis: Same. Surgery/Procedure Performed:: 1. Excision 2 cm painful mass right breast 4.5 cm from the superolateral nipple, clinically fat necrosis. 2. Excision 3 cm painful mass right breast 2 cm from the superomedial nipple, clinically fat necrosis. 3. Excision painful 2 cm scar contour deformity medial aspect right breast along the medial aspect of the horizontal incision, clinically residual granuloma from previous local stitch abscess. Description of Surgical Findings:: 53 year old woman presents with bilateral breast masses after her breast reduction mammaplasty on November 15, 2022. Tissue removed from the left breast was 1448 grams.? Tissue removed from the right breast was 1454 grams.? Pathology of both breasts showed nonproliferative fibrocystic change.? No malignancy noted. During the recovery process she developed some firmness in each breast mostly superiorly that was painful when bumped.? The healing process was slowed down with wound breakdown at the Tzone and nipple incisions. These breast wounds responded to wound care with Silver dressing changes and associated antibiotics (Flagyl for Anaerobic cocci from wound culture done on 12/12/22.) Once the breast wounds at the Tzone areas healed, her pain noticeably improved, and her firmness in her breasts superiorly have gotten smaller as well. In March,, she was concerned because the pain increased again. This prompted an Ultrasound of each breast on April 11, 2023. it showed in the right breast a 6 mm x 6 mm x 5 mm cyst at the 3:00 position of the breast at 3 cm from the nipple. Dense residual breast tissue is seen. In the medial aspect left breast, there was dense residual fibroglandular tissue. No sonographic abnormality was seen. She had a preop mammogram on 11/28/23. It showed le bilateral benign-appearing axillary lymph nodes. The patient is status post bilateral breast reduction surgery. An ultrasound was done on 11/28/23. It showed The breasts are heterogeneously dense, which may obscure small masses. There are no dominant masses or suspicious calcifications. Stable bilateral benign-appearing axillary lymph nodes. The patient is status post bilateral breast reduction surgery. An ultrasound was done on 11/28/23. It showed The right breast on the lateral aspect of the right breast was examined with ultrasound. Heterogeneous breast tissue. No abnormality is seen. The left breast showed a 4.1 cm x 2.9 cm x 1.7 cm heterogeneous breast tissue suggestive of postoperative scarring. This is at the 12:00 position of the breast at 3 cm from the nipple. This is in keeping with the prior surgery. In previous discussions, these masses are not cancerous but probably fat necrosis. In a bilateral breast reduction mammaplasty, a lot of incisions are made through the fatty breast tissue and combine that with fat tissue having poor blood supply, and fat necrosis is the result. Most of the time these areas of fat necrosis dissolve on their own. If they don't dissolve, then the next step is surgical removal of these masses. The importance of this is that the residual fat necrosis can interfere with breast cancer surveillance in the future if not removed. I used Lynette absorbable hemostat. Reference Number - [id number]. Lot Number - [id number]. Expiration - 12/09/27. Surgeon: Nicholas Trejo MD clinical science liaison: Tanmay Ponce RNFA, Type of Anesthesia: General Anesthesiologist: Rohan Heaton MD and Preston Shin CRNA. Specimen's removed: 1. Painful mass right breast 4.5 cm from the superolateral nipple, clinically fat necrosis, to Pathology. 2. Painful mass right breast 2 cm from the superomedial nipple, clinically fat necrosis, to Pathology. 3. Painful 2 cm scar contour deformity medial aspect right breast along the medial aspect of the horizontal incision, clinically residual granuloma from previous local stitch abscess to Pathology. Drains: Jeison. Estimated Blood Loss (mL): 100. Description of Procedure: Patient was taken to OR in supine position and was placed under general anesthesia. The right breast masses were marked in the preop area. The right breast was prepped and draped in the usual fashion. SCD's were placed for DVT prophylaxis. Perioperative antibiotics were given intravenously. Using xylocaine with epinephrine, the right breast was infiltrated. After waiting 5 minutes for the anesthetic to take effect, I made a circular incision around the nipple and extended the incision down the vertical scar about care home to the TZone. Superior dissection was done and the flap was elevated. I removed the superomedial breast mass first. I was able to see the mass and feel the firmness and excised it. Clinically it was fat necrosis. I then removed the superolateral breast mass second. I was able to see the mass and feel the firmness and excised it. Clinically it was fat necrosis. Both theses masses were sent to Pathology for analysis to rule out carcinoma. Hemostasis was obtained with electrocautery. I irrigated the breast wound with Irrisept 0.05% Chlorhexidine. I sprayed Lynette absorbable hemostat to minimize seroma formation. Due to the large size of the wound, I placed a size 15 Jeison drain through the vertical scar and secured it to skin with 3-0 Nylon. This wound was then closed in a multi-layered fashion with 3-0 Monocryl interrupted sutures for the deep dermis and subcutaneous tissue. The skin was approximated with 4-0 Prolene simple interrupted and vertical mattress interrupted sutures. This was followed with Histoacryl skin tissue adhesive. I then went to the scar contour deformity on the inferomedial aspect right breast at the edge of the horizontal scar. I marked out the scar contour deformity and made an oblique elliptical incision down into the subcutaneous tissue. Some thickening of the tissue, which resulted from the local stitch abscess, was excised. It was sent to Pathology for analysis to rule out carcinoma. Hemostasis was obtained with electrocautery. The wound was closed in a multi-layered fashion with 3-0 Monocryl simple interrupted sutures for the deep dermis and subcutaneous tissue. The skin was approximated with 4-0 Prolene simple interrupted sutures. This was followed with Histoacryl skin tissue adhesive. No hematoma noted. The nipple was viable. Kerlix gauze was used for the dressing followed a compression olivia wrap. Patient tolerated the procedure well and was sent to PACU in satisfactory condition. Patient will be sent home on antibiotics and pain medication. Patient will followup in a week for a wound check and for discussion of the pathology report. I will remove the sutures in two weeks. Grafts/Implants Used: Lynette Procedure Start Time: 10:36 Procedure Stop Time: 12:04 Complications None. Admit VTE Documentation VTE Present on Admission: No VTE Mechan Device Prophylaxis: SCD's VTE Pharm Prophylaxis ordered?: No Addendum Addendum: Surgery charges CPT - 23160 ICD-10 - N64.4, N63.10, N64.1, T81.41xA, Z98.890 36672 N64.4, N63.10, N64.1, T81.41xA, Z98.890
--- NOTE | 2023-12-07 12:37 | DCINST_ITS ---
Discharge Instructions Diet Discharge Diet: No restrictions Activity Discharge Activity: May Not Drive (for 2 weeks), May Shower (after the drain is removed.) and - (no heavy lifting.) May shower in (days): 7 (after the drain is removed.) May resume sexual activity in: 10-14 days Ice area for (Minutes): 5 (as needed for swelling.) Weight Bearing Status: Weight bearing as tolerated Lifting Restrictions: 20 lbs. Keep extremity elevated above heart level: - (keep head elevated.) Dressing / Incision Call your doctor if your incision/area has: Continuous Slow Oozing, Sudden Increased Bleeding, Increased Pain/ Swelling, Increased Redness, Foul Smelling Discharge and Swelling at the incision site Call your doctor if you observe: Fever of 101 or Higher, Coldness, Increased Pain, Shortness of breath, Chest pain, Calf discomfort and Uncontrolled pain Change Dressing in: 2 days (may remove the operative dressing and place new gauze over the incisions. If the gauze is dry, may leave dressing alone until the next visit.) Cleanse incision/area with: Soap & Water (after the drain is removed.) and Keep Dressing Clean & Dry Drain: Suction (Jeison drain to bulb suction. Empty and record the drainage daily.) Follow Up Care Please Follow Up With: Nicholas Trejo MD When: one week. call [phone] for appointment. Test Results: Test results from this visit will be discussed in further detail at your follow- up appointment, if applicable. Discharge Plan Admission Primary Reason for Your Visit: excision breast masses right breast Attending Provider: Nicholas Trejo Primary Care Provider: Eliz Weems Discharge Orders/Prescriptions Prescriptions: New clindamycin HCl [Cleocin HCl] 300 mg capsule 300 mg PO TID Qty: 21 0RF L.acidoph,saliva-B.bif-S.therm [Acidophilus Probiotic Blend] 175 mg capsule 1 cap PO DAILY Qty: 30 0RF oxycodone-acetaminophen [Percocet] 5-325 mg tablet 1 tab PO Q6H PRN (Reason: pain (scale score 7-10)) 7 Days Qty: 28 0RF Rx Instructions: 28 tabs (twenty-eight) No Action multivitamin [Daily Multi-Vitamin] Tablet 1 tab PO DAILY hydrochlorothiazide 25 MG tablet 12.5 mg PO DAILY Patient Comments: blood pressure fluoxetine 40 mg capsule 40 mg PO DAILY Patient Comments: TAKE 1 CAPSULE BY MOUTH ONCE DAILY cetirizine [Zyrtec] 10 mg Tablet 10 mg PO DAILY Referrals / Follow Up: Eliz Weems MD [Primary Care Provider] - Nicholas Trejo MD [Med Staff - Active Staff] - In 1 Week Disposition Disposition (needs filled in before D/C Order can be placed): Home, Self Care
== END 2023-12-07 15:00 | disposition home or self-care (01) ==
LOC: SDC 08:22 → AC 08:23
PROVIDERS: PCP Family Medicine; Referring Provider Surgery; Visit Provider Surgery
PROC: (CPT 19120; principal; 2023-12-07 09:55)
DX: N64.1 Fat necrosis of breast (principal); N64.4 Mastodynia; L92.3 Foreign body granuloma of the skin and subcutaneous tissue; T81.41XS Infection following a procedure, superficial incisional surgical site, sequela; Y83.8 Other surgical procedures as the cause of abnormal reaction of the patient, or of later complication, without mention of misadventure at the time of the procedure; N62 Hypertrophy of breast; I10 Essential (primary) hypertension; H91.90 Unspecified hearing loss, unspecified ear; Z98.890 Other specified postprocedural states; F32.A Depression, unspecified; F41.9 Anxiety disorder, unspecified; Z79.899 Other long term (current) drug therapy
CPT/HCPCS: 19120; 11402; 12031; 00400; 82962; 88305; 88341; 88342; J7120; J2405; J3475

== ENCOUNTER 2023-12-21 10:29 | Day surgery (SDC) | payer OTHER, SELFPAY ==
[2023-12-21] VITALS (10 sets, daily range): BP systolic 112–155; BP diastolic 66–100; PULSE 74–83; RESP 13–18; TEMP 36.1–36.5; O2SAT 92–99; BMI 37.0
[2023-12-21] MEDS: Lactated Ringers 1,000 ML 40 ML IV ×2 (11:21→13:40)
[2023-12-21] MEDS: Magnesium 1 GM over 15 mins IV (11:21)
[2023-12-21] MEDS: Scopolamine 1mg/72hr Patch 1 PATCH TD (11:40)
[2023-12-21] MEDS: Acetaminophen 500 MG Tablet 1000 MG PO (11:41)
[2023-12-21] MEDS: Gabapentin 600 MG Tablet PO (11:42)
[2023-12-21] MEDS: Clindamycin 900 MG/50 ML BAG 75 MG IV (12:01)
[2023-12-21] MEDS: Lidocaine 1% /Epi 1:100 (20ml) 20 ML Vial (12:30)
--- NOTE | 2023-12-21 12:50 | BR_PTH ---
PATIENT: KORINA ROSSI LOC: [facility] – [place] U#:[id number] AGE/SX: 53/F ROOM: RE12/21/[address]: Dr. Nicholas Trejo MD : 1970 BED: DIS: 12/21/2023 SPEC #: [id number] RECD: 12/21/23 13:27 STATUS: MESFIN RECharito #: [id number] HARPAL: 12/21/23 12:[address]: Nicholas Trejo DEPT: SURGICAL PATHOLOGY RECD BY: Evelio Carrillo ENTERED: 12/24/23 07:14 SP TYPE: MAMOPLASTY OTHR DR: Dr. Eliz Weems MD Tissues: Left breast, NOS Procedures: Surgery Specimen Level IV HEADER OPERATION: ERAS, excision painful breast mass left breast PRE-OP DIAGNOSIS: Breast mass- left, breast pain- left, fat necrosis- bilateral breasts TISSUE SUBMITTED: Left breast mass MICROSCOPIC DIAGNOSIS Left breast mass, excision: Fat necrosis, fibrosis and associated chronic inflammation. Fibrocystic change. Intraductal hyperplasia without atypia. No evidence of malignancy. / 12/26/2023 COMMENT Ischemic Time: 1 minute Fixation Time: 6 hours MICROSCOPIC DESCRIPTION Slides are reviewed. GROSS DESCRIPTION Received in fixative is one container labeled with the patient's name and designated Left breast mass. The specimen consists of multiple irregular fragments of indurated pink-yellow soft tissue ranging in size from 1.6cm to 7.0cm. No orientation is provided. The specimen is inked and serially sectioned to reveal chalky yellow to dense white cut surfaces. No distinct mass lesion is identified. This appears to be an area of fat necrosis. Superintendent Drivers sections are submitted in six cassettes after additional fixation. / 12/24/2023 TC: 3 CPT: 61570
[2023-12-21] MEDS: Mupirocin Ointment 22gm Tube 1 APPLIC (13:35)
--- NOTE | 2023-12-21 14:02 | PCM.OPRPT ---
Problems Associated Problem List Diagnoses (1) Breast pain, left: (2) Breast mass, left: (3) Fat necrosis of both breasts: Report of Operation Date of Procedure: 12/21/23 Pre-Operative Diagnosis: 1. 3 cm painful mass left breast 2 cm from the superior nipple, clinically fat necrosis. 2. Fat necrosis. 3. Status bilateral breast reduction mammoplasty. Post-Operative Diagnosis: Same. Surgery/Procedure Performed:: Excision 3 cm painful mass left breast 2 cm from the superior nipple, clinically fat necrosis. Description of Surgical Findings:: 53 year old woman presents with bilateral breast masses after her breast reduction mammaplasty on November 15, 2022. Tissue removed from the left breast was 1448 grams.? Tissue removed from the right breast was 1454 grams.? Pathology of both breasts showed nonproliferative fibrocystic change.? No malignancy noted. During the recovery process she developed some firmness in each breast mostly superiorly that was painful when bumped.? The healing process was slowed down with wound breakdown at the Tzone and nipple incisions. These breast wounds responded to wound care with Silver dressing changes and associated antibiotics (Flagyl for Anaerobic cocci from wound culture done on 12/12/22.) Once the breast wounds at the Tzone areas healed, her pain noticeably improved, and her firmness in her breasts superiorly have gotten smaller as well. In March,, she was concerned because the pain increased again. This prompted an Ultrasound of each breast on April 11, 2023. it showed in the right breast a 6 mm x 6 mm x 5 mm cyst at the 3:00 position of the breast at 3 cm from the nipple. Dense residual breast tissue is seen. In the medial aspect left breast, there was dense residual fibroglandular tissue. No sonographic abnormality was seen. A preop mammogram was done on 11/28/23. It showed The breasts are heterogeneously dense, which may obscure small masses. There are no dominant masses or suspicious calcifications. Stable bilateral benign-appearing axillary lymph nodes. The patient is status post bilateral breast reduction surgery. A preop ultrasound was done on 11/28/23. It showed The right breast showed heterogeneous breast tissue. No abnormality is seen. The left breast showed a 4.1 cm x 2.9 cm x 1.7 cm heterogeneous breast tissue suggestive of postoperative scarring. This is at the 12:00 position of the breast at 3 cm from the nipple. This is in keeping with the prior surgery. In previous discussions, these masses are not cancerous but probably fat necrosis. In a bilateral breast reduction mammaplasty, a lot of incisions are made through the fatty breast tissue and combine that with fat tissue having poor blood supply, and fat necrosis is the result. Most of the time these areas of fat necrosis dissolve on their own. If they don't dissolve, then the next step is surgical removal of these masses. The importance of this is that the residual fat necrosis can interfere with breast cancer surveillance in the future if not removed. The right breast masses were excised on 12/07/23. The left breast mass will be excised today. I used Lynette absorbable hemostat. Reference Number - [id number]. Device Identifier Number - [id number]. Lot Number - [id number]. Expiration - 03/09/28 Surgeon: Nicholas Trejo MD managed services consultant: Lennox Simon RNFA Type of Anesthesia: General Anesthesiologist: Vishnu Shepard MD and Dylan Keyes MD and Park Lozano CRNA Specimen's removed: 3 cm painful mass left breast 2 cm from the superior nipple, clinically fat necrosis, to Pathology. Drains: Jeison. Estimated Blood Loss (mL): 20. Description of Procedure: Patient was taken to OR in supine position and was placed under general anesthesia. I removed the sutures from the right breast. The left breast mass was marked in the preop area. The left breast was prepped and draped in the usual fashion. SCD's were placed for DVT prophylaxis. Perioperative antibiotics were given intravenously. Using xylocaine with epinephrine, the left breast was infiltrated. After waiting 5 minutes for the anesthetic to take effect, I made a semi-circular incision around the nipple and extended the incision down the vertical scar a little bit to help with the exposure. Superior dissection was done and the flap was elevated. I removed the superomedial breast mass. It was adherent to the chest wall. I was able to see the mass and feel the firmness and excised it. Clinically it was fat necrosis. The mass was sent to Pathology for analysis to rule out carcinoma. Hemostasis was obtained with electrocautery. I irrigated the breast wound with Irrisept 0.05% Chlorhexidine followed by saline irrigation. I sprayed Lynette absorbable hemostat to minimize seroma formation. Due to the large size of the wound, I placed a size 15 Jeison drain through the vertical scar and secured it to skin with 3-0 Nylon. This wound was then closed in a multi-layered fashion with 3-0 Monocryl interrupted sutures for the deep dermis and subcutaneous tissue. The skin was approximated with 4-0 Prolene simple interrupted and vertical mattress interrupted sutures. This was followed with Histoacryl skin tissue adhesive. The nipple was viable. No hematoma. Kerlix gauze was used for the dressing followed a compression oliiva wrap. Patient tolerated the procedure well and was sent to PACU in satisfactory condition. Patient will be sent home on antibiotics and pain medication. Patient will followup in a week for a wound check and for discussion of the pathology report. I will remove the sutures in two weeks. Grafts/Implants Used: Lynette. Procedure Start Time: 12:25 Procedure Stop Time: 13:48 Complications None. Admit VTE Documentation VTE Present on Admission: No VTE Mechan Device Prophylaxis: SCD's VTE Pharm Prophylaxis ordered?: No Addendum Addendum: Surgery Charges CPT - 95519 ICD-10 - N64.1, N63.20, N64.1, Z98.890
[2023-12-21 14:08] LABS: Bedside Glucose 176 mg/dL (74-106)
--- NOTE | 2023-12-21 14:24 | PCM.DC ---
Discharge Instructions Diet Discharge Diet: No restrictions Activity Discharge Activity: May Drive (after first postop visit in one week.), May Shower (after drain is removed in the office (one week).) and - (no heavy lifting. Elevate head.) May shower in (days): 7 (after the drain is removed.) May resume sexual activity in: 10-14 days Ice area for (Minutes): 5 (as needed for swelling.) Weight Bearing Status: Weight bearing as tolerated Lifting Restrictions: 20 lbs Keep extremity elevated above heart level: - Dressing / Incision Call your doctor if your incision/area has: Continuous Slow Oozing, Sudden Increased Bleeding, Increased Pain/ Swelling, Increased Redness, Foul Smelling Discharge and Swelling at the incision site Call your doctor if you observe: Fever of 101 or Higher, Coldness, Increased Pain, Shortness of breath, Chest pain, Calf discomfort and Uncontrolled pain Change Dressing in: 2 days (may remove the operative dressing and place new gauze over the incisions. If the gauze is dry, may leave dressing alone until the next visit.) Cleanse incision/area with: Soap & Water (after the drain is removed.) and Keep Dressing Clean & Dry Drain: Suction (Jeison drain to bulb suction. Empty and record the drainage daily.) Follow Up Care Please Follow Up With: Nicholas Trejo MD When: one week. call [phone] for appt. Discharge Plan Admission Primary Reason for Your Visit: excision mass left breast Attending Provider: Nicholas Trejo Primary Care Provider: Eliz Weems Discharge Orders/Prescriptions Prescriptions: Continued multivitamin [Daily Multi-Vitamin] Tablet 1 tab PO DAILY hydrochlorothiazide 25 MG tablet 12.5 mg PO DAILY Patient Comments: blood pressure fluoxetine 40 mg capsule 40 mg PO QHS Patient Comments: TAKE 1 CAPSULE BY MOUTH ONCE DAILY cetirizine [Zyrtec] 10 mg Tablet 10 mg PO DAILY PRN PRN (Reason: allergy symptoms) clindamycin HCl [Cleocin HCl] 300 mg capsule 300 mg PO TID Qty: 21 0RF oxycodone-acetaminophen [Percocet] 5-325 mg tablet 1 tab PO Q6H PRN (Reason: pain (scale score 7-10)) 7 Days Qty: 28 0RF Rx Instructions: 28 tabs (twenty-eight) Nicolas Nickersonbif-Melody [Acidophilus Probiotic Blend] 175 mg capsule 1 cap PO DAILY Qty: 30 0RF Referrals / Follow Up: Eliz Weems MD [Primary Care Provider] - Nicholas Trejo MD [Med Staff - Active Staff] - In 1 Week Disposition Disposition (needs filled in before D/C Order can be placed): Home, Self Care
== END 2023-12-21 16:00 | disposition home or self-care (01) ==
LOC: SDC 10:30 → AC 10:31
PROVIDERS: PCP Family Medicine; Referring Provider Surgery; Visit Provider Surgery
PROC: (CPT 19120; principal; 2023-12-21 12:35)
DX: N60.12 Diffuse cystic mastopathy of left breast (principal); N64.1 Fat necrosis of breast; I10 Essential (primary) hypertension; Z79.899 Other long term (current) drug therapy; Z98.890 Other specified postprocedural states
CPT/HCPCS: 19120; 00400; 82962; 88305; J7120; J2405; J3475

== ENCOUNTER → 2025-04-27 | Outpatient (CLI) | payer OTHER, SELFPAY ==
[2025-04-27 13:09] LABS: Hematocrit 40.5 % (37-47); Hemoglobin 13.7 g/dL (12.0-15.0); Immature Granulocytes Count 0.020 X10^3/uL (0.0-0.0); Mean Corp Hgb Conc 33.8 g/dL (32-36); Mean Corpuscular Volume 84.7 fL (81-99); Mean Platelet Vol. 11.6 fl (6.2-12.0); NRBC Flagged by Analyzer 0 % (0-5); Platelet Count 233 K/mm3 (150-450); RBC Distribution Width CV 13.1 % (11.6-14.6); RBC Distribution Width SD 40.8 fl (35.1-43.9); Red Blood Count 4.78 M/mm3 (4.2-5.4); White Blood Count 6.6 K/mm3 (4.4-11.0)
[2025-04-27 14:04] LABS: Cholesterol 191 mg/dL (<=200); Low Density Lipoprotein Calc. 100 mg/dL; Triglycerides 167 mg/dL; Very Low Density Lipoprotein 33 mg/dL (5-40); cholesterol:hdl ratio screen 3.34
[2025-04-27 14:10] LABS: AST(SGOT) 32 U/L (<=31); Alanine Aminotransfer ALT/SGPT 21 U/L (<=34); Albumin, Serum 4.3 g/dL (3.5-5.0); Alkaline Phosphatase 91 U/L (35-104); Anion Gap 10 (5-15); BUN 13 mg/dL (4-19); BUN/Creat Ratio 19.4 RATIO (10-20); Calcium,Total 9.5 mg/dL (7.6-11.0); Carbon Dioxide 24.0 mmol/L (21.0-32.0); Chloride 105 mmol/L (98-108); Globulin 3.2 g/dL (2.2-4.2); Glucose 100 mg/dL (70-99); Potassium 4.9 mmol/L (3.3-5.1)
== END | disposition home or self-care (01) ==
LOC: LAB 12:07
PROVIDERS: PCP Family Medicine; Referring Provider Family Medicine; Visit Provider Family Medicine
DX: Z00.00 Encounter for general adult medical examination without abnormal findings (principal); Z13.6 Encounter for screening for cardiovascular disorders
CPT/HCPCS: 36415; 80053; 80061; 83036; 84443; 85025

== ENCOUNTER → 2025-05-05 | Outpatient (CLI) | payer OTHER, SELFPAY ==
--- NOTE | 2025-05-05 11:47 | BI_ITS ---
EXAM: SCRN MAMM (CAD)W/LORENA BILAT DATE: 05/05/2025 CLINICAL HISTORY: F, Age 54 y/o , SCREENING No family history. Remote left excisional breast biopsy. Prior bilateral breast reduction surgery. TECHNIQUE: Procedure Code: [id number] Modality: MG Procedure: SCRN MAMM (CAD)W/LORENA BILAT COMPARISON: Prior exam(s) dated November 28, 2023.. FINDINGS: TISSUE DENSITY: There are scattered areas of fibroglandular density. Bilateral Breast Mammographic Findings: No significant masses, calcifications or other abnormalities are identified. Stable bilateral fat containing axillary lymph nodes. No suspicious masses, areas of developing architectural distortion, or suspicious calcifications. There has been no significant interval change. BI/SCRN MAMM (CAD)W/LORENA BILAT IMPRESSION: Stable bilateral screening mammogram. OVERALL FINAL ASSESSMENT BI-RADS 2: BENIGN RECOMMENDATION: Routine annual follow-up in 1 Year Additional Recommendation none A letter with findings and recommendations will be mailed to the patient. Reading Location: [place] [id number]
== END | disposition home or self-care (01) ==
LOC: OPBI 11:46
PROVIDERS: PCP Family Medicine; Referring Provider Family Medicine; Visit Provider Family Medicine
DX: Z12.31 Encounter for screening mammogram for malignant neoplasm of breast (principal)
CPT/HCPCS: 77063; 77067